=== PATIENT | male | born 1970 | race Caucasian/White ===

== ENCOUNTER → 2016-10-25 | Outpatient (CLI) | payer BC ==
[~2016-10-25] MED LIST: FINA1TAB62 PO; ZOLP10TA6
[2016-10-25 11:56] LABS: BLOOD UREA NITROGEN 12 mg/dl (7-18); GLUCOSE 105 mg/dl (70-99)
[2016-10-25 11:57] LABS: ALT/SGPT 99 U/L (12-78); AST/SGOT 28 U/L (15-37); BUN/CREATININE RATIO 11.3 (10-20); CALCIUM 9.3 mg/dl (8.5-10.1); CARBON DIOXIDE 29 mmol/L (21-32); CHLORIDE 108 mmol/L (98-107); SODIUM 144 mmol/L (136-145)
[2016-10-25 11:59] LABS: ALB/GLOB RATIO 1.4 (0.9-2); ALKALINE PHOSPHATASE 88 U/L (45-117); CHOLESTEROL 217 mg/dl (0-200); HDL CHOLESTEROL 54 mg/dl; LDL CHOLESTEROL CALCULATED 135 mg/dl; TRIGLYCERIDES 138 mg/dl (0-150); VERY LOW DENSITY LIPOPROT CALC 28 mg/dl
[2016-10-25 12:17] LABS: ESTIMATED AVERAGE GLUCOSE 97 mg/dl; HA1C FLAG Normal (Normal)
== END | disposition home or self-care (01) ==
LOC: C.LAB1850 10:07
PROVIDERS: ATTEND Nurse Practitioner Family
DX: E78.00 Pure hypercholesterolemia, unspecified (principal); R73.9 Hyperglycemia, unspecified

== ENCOUNTER 2019-05-02 14:46 | Inpatient (IN) ==
[2019-05-02] MEDS ORDERED: SODIUM CHLORIDE 0.9% 1000ML 1,000 ML IV ONE (15:14)
--- NOTE | 2019-05-02 15:17 | Emergency Department Note ---
Entered by Sherice Glez acting as a scribe for Waldo Aviles MD History of Present Illness General Chief complaint: Syncope (Near Syncope) Stated complaint: NEAR SYNCOPE Time Seen by Provider: 05/02/19 14:55 Source: patient History of Present Illness Onset (ago): hour(s) (just prior to arrival ) Location: head (general) Pain Consistency: + other (episode ) Quality: + other (near syncope ) Associated symptoms: + denies other symptoms (negative urinary symptoms) and + other (positive breathing heavily; positive difficulty speaking; positive unable to focus; positive difficulty focusing; positive losing weight; positive difficulty sleeping; negative thoughts of hurting self or others; negative seeing or hearing things; positive numb all over; negative neck pain); no headaches Treatments prior to arrival: other (Lamictal) The patient is a 48 year old male who presents to the Emergency Room with complaints of an episode of near syncope that occurred just prior to arrival. The patient's states that the patient was breathing heavily at this time. The patient's states that the patient has had difficulty speaking today. The patient states that he has been unable to focus over the past week, and states that after seeing his PCP yesterday he was given and took one dose of Lamictal. The patient's states that several months ago the patient had an "anxiety attack" after their kids were fighting and he was put on mirtazapine but was taken off of this at the end of January, about 3 months ago. The patient's states that the patient has had a difficult time focusing since this time and had a hypomanic episode after this. The patient states that he has had problems eating, losing weight, and sleeping. The patient denies any thoughts of hurting himself or others. He denies seeing or hearing things that are not there. The patient denies pain, but states that he feels numb all over. The patient denies vision changes, headache, neck carrion, and urinary symptoms. The patient's states that the patient's mother has a history of anxiety, depression, and bipolar disorder. The patient denies drug or alcohol use. Home Medications Home Medications Medication Instructions Recorded Confirmed Type atorvastatin 10 mg PO DAILY 10/27/18 05/02/19 History zolpidem 10 mg PO DAILY 10/27/18 05/02/19 History omeprazole 40 mg capsule,delayed 40 mg PO DAILY #90 cap 03/07/19 05/02/19 Rx release finasteride 1 mg PO DAILY 05/02/19 05/02/19 History lamotrigine 25 mg PO HS 05/02/19 05/02/19 History Allergies Allergy/AdvReac Type Severity Reaction Status Date / Time No Known Allergies Allergy Unknown Verified 05/01/19 09:29 Past Med/Surg History Medical History Bipolar disorder (manic depression) (Chronic) Anxiety Insomnia Hyperglycemia Hypercholesterolemia GERD without esophagitis Adopted Anxiety History of wisdom tooth extraction Insomnia Surgical History History of tonsillectomy Family History Mother Colorectal cancer Diabetes Depression Other Family history non-contributory Social History Preferred Language: Turkish Communication Ability: Effective [employer] Required: No Beliefs That Will Affect Care: None marital status: Current Living Situation: Spouse current occupational status: employed Feels Safe at Home: Yes Smoking Status: Light tobacco smoker Tobacco Type: cigars ; Hx Alcohol Use: Yes Alcohol type: beer and wine Alcohol Intake Frequency: Ra rely Hx Substance Use: No Dental Care, Regularly: Yes Physical Activity Frequency: 3-4 Times per Week Review of Systems See HPI for pertinent positives & negatives. and A total of 10 systems reviewed and were otherwise negative Physical Exam Vital Signs Vital Signs - 24 hr 05/02/19 14:48 05/02/19 15:57 05/02/19 15:58 Temperature 36.4 C L Temperature Source Oral Sepsis Recent Fever Within 48 Hours No Sepsis New/Unexplained Change in Mental Status No Sepsis Action Taken by Nursing No Action Required Pulse Rate 97 H 75 70 Pulse Rate [Apical] Pulse Rate from SpO2 Sensor 76 72 Pulse Rhythm [Apical] Pulse Strength [Apical] Respiratory Rate 20 16 24 Respiratory Effort / Characteristics Respiratory Depth Blood Pressure 116/84 117/75 Blood Pressure [Right Arm] Blood Pressure Mean 94 89 Blood Pressure Mean [Right Arm] Blood Pressure Position [Right Arm] Pulse Oximetry 100 97 98 Oxygen Delivery Method Room Air 05/02/19 16:00 05/02/19 16:01 05/02/19 16:53 Temperature Temperature Source Sepsis Recent Fever Within 48 Hours Sepsis New/Unexplained Change in Mental Status Sepsis Action Taken by Nursing Pulse Rate 73 72 106 H Pulse Rate [Apical] Pulse Rate from SpO2 Sensor 75 73 Pulse Rhythm [Apical] Pulse Strength [Apical] Respiratory Rate 8 L 14 19 Respiratory Effort / Characteristics Respiratory Depth Blood Pressure 117/82 122/95 Blood Pressure [Right Arm] Blood Pressure Mean 93 104 Blood Pressure Mean [Right Arm] Blood Pressure Position [Right Arm] Pulse Oximetry 97 96 Oxygen Delivery Method 05/02/19 17:00 05/02/19 17:30 05/02/19 18:00 Temperature Temperature Source Sepsis Recent Fever Within 48 Hours Sepsis New/Unexplained Change in Mental Status Sepsis Action Taken by Nursing Pulse Rate 75 82 76 Pulse Rate [Apical] Pulse Rate from SpO2 Sensor Pulse Rhythm [Apical] Pulse Strength [Apical] Respiratory Rate 21 20 12 Respiratory Effort / Characteristics Respiratory Depth Blood Pressure 142/98 H 136/90 135/92 Blood Pressure [Right Arm] Blood Pressure Mean 112 105 106 Blood Pressure Mean [Right Arm] Blood Pressure Position [Right Arm] Pulse Oximetry Oxygen Delivery Method 05/02/19 20:00 05/02/19 21:39 Temperature Temperature Source Sepsis Recent Fever Within 48 Hours Sepsis New/Unexplained Change in Mental Status Sepsis Action Taken by Nursing Pulse Rate Pulse Rate [Apical] 72 67 Pulse Rate from SpO2 Sensor Pulse Rhythm [Apical] Regular Pulse Strength [Apical] Normal Respiratory Rate 20 20 Respiratory Effort / Characteristics Non-Labored Spontaneous Respiratory Depth Normal Blood Pressure Blood Pressure [Right Arm] 130/74 134/89 Blood Pressure Mean Blood Pressure Mean [Right Arm] 92 104 Blood Pressure Position [Right Arm] Sitting Sitting Pulse Oximetry 98 98 Oxygen Delivery Method Room Air General: Anxious non-ill appearing middle aged in no acute distress. HEENT: Normal cephalic atraumatic. Pupils are equal round and reactive to light. Extraocular movements are intact. Oropharynx is pink with moist mucous membranes. No swelling of the mouth lips or tongue. Neck: Supple with a midline trachea. No meningeal signs or stiffness, no JVD or bruits. No Stridor. Chest: Clear to auscultation bilaterally. No wheezes or rhonchi. No increased work of breathing. Heart: regular rate and rhythm. Abdomen: Soft nontender, nondistended without rebound guarding or rigidity. Extremities: No cyanosis clubbing or edema. No calf tenderness or asymmetry Spine/Back. Non tender to palpation. No CVA tenderness Skin: Good turgor without rashes. Neurologic exam: Cranial nerves two through 12 are intact. Motor and sensation are intact and symmetrical throughout. No tremor. Finger to nose intact. Course 1457: Past medical records reviewed. The patient was evaluated in room B4B. A complete history and physical exam was performed. 1648: Upon reevaluation, the patient is resting comfortably and seems more communicative. The patient is medically cleared and will be seen by the psychiatric disability case manager. 1822: After a long discussion the patient is willing to be further evaluated. 2051: I discussed the case with Dr. Weston who accepts the patient for further evaluation at [address] [place] [address]. 2206: I had a long discussion with the patient who has decided to sign himself in voluntarily to [address] [place] [address]. Consultations Consultation #1: I discussed the case with Dr. Weston who accepts the patient for further evaluation at [address] [place] [address]. Time: 20:52 Administered Medications Atorvastatin Calcium (Lipitor) 10 mg PO DAILY [facility] Stop: 06/02/19 08:59 Last Admin: 05/03/19 08:59 Dose: 10 mg Documented by: [id number] Lorazepam (Ativan) 1 mg PO TID PRN PRN Reason: Anxiety/Agitation Stop: 06/01/19 21:23 Last Admin: 05/03/19 11:31 Dose: 1 mg Documented by: [id number] Finasteride~Non- Formulary Patient's Own Med 1 ea PO DAILY [facility] Stop: 06/02/19 08:59 Last Admin: 05/03/19 08:59 Dose: 1 ea Documented by: [id number] Pantoprazole Sodium (Protonix) 40 mg PO DAILY [facility] Stop: 06/02/19 08:59 Last Admin: 05/03/19 08:59 Dose: 40 mg Documented by: [id number] Discontinued Medications Sodium Chloride (Nss 1000ml) 1,000 mls @ 999 mls/hr IV .Q1H1M ONE Stop: 05/02/19 16:14 Last Infusion: 05/02/19 16:03 Dose: 0 mls/hr Documented by: [id number] Admin: 05/02/19 15:51 Dose: 999 mls/hr Documented by: [id number] Miscellaneous (Order Awaiting Action) 1 ea N/A QS [facility]UY[facility] Stop: 06/02/19 00:00 Last Admin: 05/03/19 04:44 Dose: Not Given Documented by: [id number] Zolpidem Tartrate (Ambien) 10 mg PO HS [facility] Stop: 06/01/19 21:59 Last Admin: 05/03/19 00:09 Dose: 10 mg Documented by: [id number] Medical Decision Making Differential Diagnosis Differential diagnoses include anxiety, bipolar disorder, cardiac disease, arrhythmia, thyroid disease, electrolyte or metabolic abnormality, central neuro logic process, and others were considered. Medical Records Attestation: I reviewed the patient's medical records. Home Medications Current Medication List: was personally reviewed by me Laboratory Data Attestation: I reviewed the patient's lab results. Result diagrams: 05/02/19 15:39 05/02/19 15:39 Lab Results 05/02/19 05/02/19 05/02/19 Range/Units 15:39 15:39 15:39 WBC 8.96 (4.8-10.8) K/uL RBC 4.95 (4.7-6.1) M/uL Hgb 15.1 (14.0-18.0) g/dL Hct 41.9 L (42-52) % MCV 84.6 (80-100) fL MCH 30.5 (25-34) pg MCHC 36.0 (32-36) g/dL RDW Std Deviation 40.7 (36.4-46.3) fL RDW Coeff of Clark 13.3 (11.5-14.5) % Plt Count 218 (130-400) K/uL MPV 10.7 H (7.4-10.4) fL Immature Gran % (Auto) 0.1 % Neut % (Auto) 74.4 % Lymph % (Auto) 19.2 % Grand % (Auto) 5.9 % Eos % (Auto) 0.1 % Baso % (Auto) 0.3 % Immature Gran # (Auto) 0.01 (0.00-0.02) K/uL Neut # (Auto) 6.66 H (1.4-6.5) K/uL Lymph # (Auto) 1.72 (1.2-3.4) K/uL Grand # (Auto) 0.53 (0.11-0.59) K/uL Eos # (Auto) 0.01 (0-0.5) K/uL Baso # (Auto) 0.03 (0-0.2) K/uL Sodium 142 (136-145) mmol/L Potassium 3.8 (3.5-5.1) mmol/L Chloride 112 H (98-107) mmol/L Carbon Dioxide 23 (21-32) mmol/L Anion Gap 7.0 (3-11) BUN 13 (7-18) mg/dl Creatinine 1.20 (0.6-1.4) mg/dl Est Cr Clr Drug Dosing 76.0 ml/min Est GFR ( Amer) 81.2 Est GFR (Non-Af Amer) 70.1 BUN/Creatinine Ratio 10.5 (10-20) Glucose 106 H (70-99) mg/dl Calcium 8.9 (8.5-10.1) mg/dl Total Bilirubin 0.7 (0.2-1) mg/dl AST 11 L (15-37) U/L ALT 33 (12-78) U/L Alkaline Phosphatase 90 (45-117) U/L Total Protein 6.9 (6.4-8.2) gm/dl Albumin 3.9 (3.4-5.0) gm/dl Globulin 3.0 (2.5-4.0) gm/dl Albumin/Globulin Ratio 1.3 (0.9-2) TSH 1.340 (0.300-4.500) uIu/ml Urine Color Urine Appearance (Clear) Urine pH (4.5-7.5) Ur Specific [place] (1.000-1.030) Urine Protein (Negative) Urine Glucose (UA) (Negative) Urine Ketones (Negative) Urine Blood (Negative) Urine Nitrite (Negative) Urine Bilirubin (Negative) Urine Urobilinogen (Negative) Ur Leukocyte Esterase (Negative) Urine WBC (Auto) (0-5) /hpf Urine RBC (Auto) (0-4) /hpf U Hyaline Cast (Auto) (0-5) /lpf U Epithel Cells (Auto) (0-5) /lpf Urine Bacteria (Auto) (Negative) Salicylates < 1.7 L (2.8-20) mg/dl Urine Opiates Screen (Neg) Ur Methadone, Qual (Neg) Acetaminophen < 2 L (10-30) ug/ml Urine Barbiturates (Neg) Ur Phencyclidine (PCP) (Neg) U Amphetamin/Meth Scrn (Neg) MDMA (Ecstasy) Screen (Neg) U Benzodiazepines Scrn (Neg) Ur Cocaine Metabolite (Neg) U Marijuana (THC) Screen (Neg) Ethyl Alcohol mg/dL (0-3) mg/dl 05/02/19 05/02/19 05/02/19 Range/Units 15:39 18:50 18:50 WBC (4.8-10.8) K/uL RBC (4.7-6.1) M/uL Hgb (14.0-18.0) g/dL Hct (42-52) % MCV (80-100) fL MCH (25-34) pg MCHC (32-36) g/dL RDW Std Deviation (36.4-46.3) fL RDW Coeff of Clark (11.5-14.5) % Plt Count (130-400) K/uL MPV (7.4-10.4) fL Immature Gran % (Auto) % Neut % (Auto) % Lymph % (Auto) % Grand % (Auto) % Eos % (Auto) % Baso % (Auto) % Immature Gran # (Auto) (0.00-0.02) K/uL Neut # (Auto) (1.4-6.5) K/uL Lymph # (Auto) (1.2-3.4) K/uL Grand # (Auto) (0.11-0.59) K/uL Eos # (Auto) (0-0.5) K/uL Baso # (Auto) (0-0.2) K/uL Sodium (136-145) mmol/L Potassium (3.5-5.1) mmol/L Chloride (98-107) mmol/L Carbon Dioxide (21-32) mmol/L Anion Gap (3-11) BUN (7-18) mg/dl Creatinine (0.6-1.4) mg/dl Est Cr Clr Drug Dosing ml/min Est GFR ( Amer) Est GFR (Non-Af Amer) BUN/Creatinine Ratio (10-20) Glucose (70-99) mg/dl Calcium (8.5-10.1) mg/dl Total Bilirubin (0.2-1) mg/dl AST (15-37) U/L ALT (12-78) U/L Alkaline Phosphatase (45-117) U/L Total Protein (6.4-8.2) gm/dl Albumin (3.4-5.0) gm/dl Globulin (2.5-4.0) gm/dl Albumin/Globulin Ratio (0.9-2) TSH (0.300-4.500) uIu/ml Urine Color Yellow Urine Appearance Turbid A (Clear) Urine pH 7.5 (4.5-7.5) Ur Specific [place] 1.021 (1.000-1.030) Urine Protein Negative (Negative) Urine Glucose (UA) Negative (Negative) Urine Ketones Negative (Negative) Urine Blood Negative (Negative) Urine Nitrite Negative (Negative) Urine Bilirubin Negative (Negative) Urine Urobilinogen Negative (Negative) Ur Leukocyte Esterase Negative (Negative) Urine WBC (Auto) 1-5 (0-5) /hpf Urine RBC (Auto) 0-4 (0-4) /hpf U Hyaline Cast (Auto) 1-5 (0-5) /lpf U Epithel Cells (Auto) 10-20 H (0-5) /lpf Urine Bacteria (Auto) Negative (Negative) Salicylates (2.8-20) mg/dl Urine Opiates Screen Neg (Neg) Ur Methadone, Qual Neg (Neg) Acetaminophen (10-30) ug/ml Urine Barbiturates Neg (Neg) Ur Phencyclidine (PCP) Neg (Neg) U Amphetamin/Meth Scrn Neg (Neg) MDMA (Ecstasy) Screen Neg (Neg) U Benzodiazepines Scrn Neg (Neg) Ur Cocaine Metabolite Neg (Neg) U Marijuana (THC) Screen Neg (Neg) Ethyl Alcohol mg/dL < 3.0 (0-3) mg/dl Imaging Data Radiologist's Impression: Radiology results as stated below per my review and the radiologist's interpretation: XR chest 1V portable CLINICAL HISTORY: near syncope COMPARISON STUDY: No previous studies for comparison. FINDINGS: The heart is at the upper limits of normal in size. There is no failure. There is no focal pulmonary consolidation. There are no pleural effusions.[ IMPRESSION: No active disease in the chest. Electronically signed by: Cesar Sutton M.D. 05/02/2019 3:[address] head/brain wo con CT DOSE: 729.78 mGycm HISTORY: Mental status change difficulty concentrating, syncope TECHNIQUE: Multiaxial CT images of the head were performed without the use of intravenous contrast. A dose lowering technique was utilized adhering to the principles of ALARA. Comparison: None. Findings: The paranasal sinuses and mastoid air cells are clear. The calvarium and skull base are intact. The ventricles and sulci are within normal limits. There is no mass, hematoma, midline shift, or acute infarct. Impression: No acute intracranial abnormality. The above report was generated using voice recognition software. It may contain grammatical, syntax or spelling errors. Electronically signed by: Tahir Simpson M.D. 05/02/2019 4:21 PM ECG Data Attestation: I personally reviewed and interpreted this ECG as follows: Indication: weakness Rate (beats per minute): 71 Rhythm: normal sinus Findings: no PAC, no PVC, no acute ischemic change and no ectopy Comparison ECG Date: no prior available Blood Pressure Blood Pressure Findings: Normal blood pressure MDM Narrative This patient comes in as described above he was placed in room before. He felt dizzy and had a near syncopal episode today. He is have been having trouble lately over the last week or so where he had trouble focusing. There has been a lot of stress at home. He says some manic type symptoms and his doctor started him on gabapentin yesterday. He feels his symptoms are psychological. He has no neurologic deficits. Stable vital signs. IV access was established he did extensive medical work-up to evaluate for possible medical reason for his symptoms which included EKG, cardiac blood testing chest x-ray head CT urinalysis and culture and toxicologic studies. He was reassessed frequently. EKG does not suggest acute coronary syndrome or arrhythmia. Troponin is negative. CAT scan of his head is unremarkable and he has a normal neurologic exam. He has no significant electrolyte or metabolic abnormalities. He has nothing to suggest acute toxicologic process. At this point, he is medically cleared. He was evaluated by psychiatric disability case manager and we discussed inpatient versus outpatient treatment. The patient is willing to get inpatient treatment as having a hard time functioning at work due to his anxiety and menta l health issues. He voluntarily signed in 2-3 S. for further inpatient treatment and evaluation. Impression & Plan Insomnia, Disorganized thought process, Manic behavior, Anxiety Discharge Plan Visit Data *Final* Discharge Date/Time: 05/02/19 22:33 Chief Complaint: Syncope (Near Syncope) Stated Complaint: NEAR SYNCOPE ED Provider: Waldo Aviles Discharge Problem: Insomnia, Disorganized thought process, Manic behavior, Anxiety Patient Disposition: Admitted As Inpatient Discharge Instructions Interventions: ED Discharge Assessment Last Done: 05/02/19 22:33 The scribe's documentation has been prepared under my direction and personally reviewed by me in its entirety. I confirm that the note above accurately reflects all work, treatment, procedures, and medical decision making performed by me.
--- NOTE | 2019-05-02 15:49 | XRay Report ---
XR chest 1V portable CLINICAL HISTORY: near syncope COMPARISON STUDY: No previous studies for comparison. FINDINGS: The heart is at the upper limits of normal in size. There is no failure. There is no focal pulmonary consolidation. There are no pleural effusions.[ IMPRESSION: No active disease in the chest. Electronically signed by: Cesar Sutton M.D. 05/02/2019 3:48 PM
[2019-05-02 15:52] LABS: Basophils # (auto) 0.03 K/uL (0-0.2); Basophils % (auto) 0.3 %; Eosinophils # (auto) 0.01 K/uL (0-0.5); Eosinophils % (auto) 0.1 %; Hematocrit (blood only) 41.9 % (42-52); Hemoglobin 15.1 g/dL (14.0-18.0); Immature Granulocytes # (auto) 0.01 K/uL (0.00-0.02); Immature Granulocytes % (auto) 0.1 %; Lymphocytes # (auto) 1.72 K/uL (1.2-3.4); Lymphocytes % (auto) 19.2 %; Mean Corpuscular Hemoglobin 30.5 pg (25-34); Mean Corpuscular Volume 84.6 fL (80-100); Mean Platelet Volume 10.7 fL (7.4-10.4); Monocytes # (auto) 0.53 K/uL (0.11-0.59); Monocytes % (auto) 5.9 %; Neutrophils # (auto) 6.66 K/uL (1.4-6.5); Neutrophils % (auto) 74.4 %; Platelet Count 218 K/uL (130-400); RDW Coefficient of Variation 13.3 % (11.5-14.5); RDW Standard Deviation 40.7 fL (36.4-46.3); Red Blood Count 4.95 M/uL (4.7-6.1); White Blood Count 8.96 K/uL (4.8-10.8)
[2019-05-02 16:11] LABS: Albumin Level 3.9 gm/dl (3.4-5.0); BUN Creatinine Ratio 10.5 (10-20); Calcium 8.9 mg/dl (8.5-10.1); Est GFR (African American) 81.2; Est GFR (Non-African American) 70.1; Potassium 3.8 mmol/L (3.5-5.1)
[2019-05-02 16:22] LABS: Albumin Globulin Ratio 1.3 (0.9-2); Bilirubin,Total 0.7 mg/dl (0.2-1); Thyroid Stimulating Hormone 1.34 uIu/ml (0.300-4.500); Total Protein 6.9 gm/dl (6.4-8.2)
--- NOTE | 2019-05-02 16:22 | CT Scan Report ---
CT head/brain wo con CT DOSE: 729.78 mGycm HISTORY: Mental status change difficulty concentrating, syncope TECHNIQUE: Multiaxial CT images of the head were performed without the use of intravenous contrast. A dose lowering technique was utilized adhering to the principles of ALARA. Comparison: None. Findings: The paranasal sinuses and mastoid air cells are clear. The calvarium and skull base are int act. The ventricles and sulci are within normal limits. There is no mass, hematoma, midline shift, or acute infarct. Impression: No acute intracranial abnormality. The above report was generated using voice recognition software. It may contain grammatical, syntax or spelling errors. Electronically signed by: Tahir Simpson M.D. 05/02/2019 4:21 PM
[2019-05-02 16:30] LABS: Acetaminophen < 2 ug/ml (10-30)
[2019-05-02 16:31] LABS: Salicylate < 1.7 mg/dl (2.8-20)
[2019-05-02 19:23] LABS: Appearance Urine Turbid (Clear); Bacteria Urine Automated Negative (Negative); Bilirubin Urine Negative (Negative); Blood Urine Negative (Negative); Color Urine Yellow; Glucose Urine UA Negative (Negative); Ketones Urine Negative (Negative); Leukocyte Esterase Urine Negative (Negative); Nitrite Urine Negative (Negative); Protein Urine Negative (Negative); RBC Urine Automated 0-4 /hpf (0-4); Specific Gravity Urine 1.021 (1.000-1.030); Urobilinogen Urine Negative (Negative); pH Urine 7.5 (4.5-7.5)
[2019-05-02 19:38] LABS: Amphetamines+Metham, Urine Neg (Neg); Barbiturates, Urine Neg (Neg); Benzodiazepine, Urine Neg (Neg); Cocaine, Urine Neg (Neg); MDMA (Ecstacy), Urine Neg (Neg); Methadone, Urine Neg (Neg); Opiate, Urine Neg (Neg); Phencyclidine, Urine Neg (Neg)
[2019-05-02] MEDS ORDERED: ACETAMINOPHEN 325 MG TAB PO PRN (21:20)
[2019-05-02] MEDS ORDERED: BISMUTH SUBSALICYLATE PER ML OMNICELL CHARGE PO PRN (21:20)
[2019-05-02] MEDS ORDERED: MAGNESIUM HYDROXIDE SUSP 30 ML UDC PO PRN (21:20)
[2019-05-02] MEDS ORDERED: SODIUM CHLORIDE 0.65% NA SOLN 45 ML (OCEAN) PRN (21:20)
[2019-05-02] MEDS ORDERED: ALUMINUM/MAGNESIUM SUSP 30 ML UDC PO PRN (21:20)
[2019-05-02] MEDS ORDERED: LORazepam 1 MG TAB PO PRN (21:24)
[2019-05-02] MEDS ORDERED: LORazepam 2 MG/ML VIAL (IM USE) IM PRN (21:25)
[2019-05-02] MEDS ORDERED: ZOLPIDEM TARTRATE 10 MG TAB PO SCH (22:00)
[2019-05-03] MEDS: FINASTERIDE PO SCH (08:59)
[2019-05-03] MEDS: ATORVASTATIN 10 MG TAB PO SCH (08:59)
[2019-05-03] MEDS: PANTOprazole 40 MG TAB PO SCH (08:59)
[2019-05-03] MEDS ORDERED: ZOLPIDEM TARTRATE 10 MG TAB PO SCH (09:00)
[2019-05-03] MEDS ORDERED: FINASTERIDE PO SCH (09:00)
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
[2019-05-03] MEDS ORDERED: ESZOPICLONE 1 MG TAB PO PRN (10:26)
[2019-05-03] MEDS: lamoTRIgine 25 MG TAB PO SCH (21:55)
[2019-05-03] MEDS ORDERED: MIRTAZAPINE TAB 15 MG TAB PO SCH (22:00)
[2019-05-04] MEDS: PANTOprazole 40 MG TAB PO SCH (08:53)
[2019-05-04] MEDS: ATORVASTATIN 10 MG TAB PO SCH (08:53)
[2019-05-04] MEDS: FINASTERIDE PO SCH (08:53)
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
[2019-05-04] MEDS ORDERED: ZOLPIDEM TARTRATE 10 MG TAB PO PRN (16:26)
[2019-05-04] MEDS: MIRTAZAPINE TAB 15 MG TAB PO SCH (21:51)
[2019-05-04] MEDS: lamoTRIgine 25 MG TAB PO SCH (21:51)
--- NOTE | 2019-05-05 08:08 | Psychiatric Progress Note ---
Date of Service May 05, 2019 Impression / Recommendations Impression 48-year-old male with a history of generalized anxiety disorder, insomnia, and newly diagnosed bipolar disorder after what was described as a manic episode last month in the context of significant family stress at home who presents with inability to function due to severe anxiety. He notes that he did have a period of several weeks during which he felt happier and had more energy than usual, but indicates that this was within the context of making medication adjustments that included tapering and discontinuing mirtazapine and Ambien. After discontinuing sedating medications he did experience some improvement in his energy and felt more optimistic for a time, but does not describe elated, expansive, or highly irritable mood. Patient was placed back on mirtazapine at 15 mg a day (without further titration) and will trial Lunesta for sleep, as he reports Ambien is no longer effective. Continue to closely observe the patient for signs of felix or hypomania. Until stability of mood and thought content is observed, patient continues to be at high risk of harm to self. Ongoing inpatient psychiatric treatment is medically necessary. (1) Anxiety: 05/03 -Patient meets criteria for generalized anxiety disorder, with a recent panic attack which led to hospitalization. -Reviewed the diagnosis and treatment recommendations, including options to resu me mirtazapine or a trial of an SSRI antidepressant. He agreed to resume mirtazapine as he feels it was beneficial and well-tolerated, so will start 7.5 mg at bedtime. -Lorazepam 1 mg 3 times daily as needed for acute anxiety in the hospital. Due to history of alcohol misuse and chronic sedative hypnotic sleep medication, would discontinue this prior to discharge. -Attend to participate in groups and therapy, work on healthy coping skills and discharge safety plan. -Has outpatient therapy at [facility]. Refer for outpatient psychiatric care. Encourage marital therapy. 05/04 -I believe that in addition to a panic disorder and generalized anxiety, the patient is having ongoing difficulty adjusting to his home situation, which includes marital difficulties and what he describes as a "confidence killing" set of behavioral problems that involve all 3 of his children. He adds, "1 kid with behavioral problems would be something that I could explain without blaming my parenting skills. To have all 3 having problems has made me question abilities." He says he also feels diminished by the fact that he is having difficulty managing the stress of his circumstances. -The patient was told that he can use lorazepam for excessive anxiety or for the panic episodes. -He represents that mirtazapine at doses higher than 7.5 mg have, in the past, assisted not only with sleep but with anxiety. He notes that a side effect of mirtazapine, at doses above 15 mg has been excess daytime sedation. The plan is to increase his dose of mirtazapine from 7.5 mg to a dose of 15 mg starting this evening. 05/05 - Continue 15mg of mirtazapine qHS - Encourage ongoing participation in group and recreational therapies, encouraging development of healthy and effective coping strategies (2) Bipolar disorder: 05/03 -diagnostically challenging as not a typical bipolar presentation, with severe anxiety and insomnia triggering his recent manic episode. Will get collateral information from his , as he indicates that they have different opinions about how severe his behavior was. -Continue lamotrigine as this is a reasonable intervention to stabilize mood. He just started it yesterday, so will be on 25 mg until 05/16/2019, and can then increase to 50 mg daily. 05/03 -I agree that this is not a typical bipolar presentation, but I also agree that we cannot rule out bipolar type II at this point. As above, the patient does not endorse increased energy, there is no evidence of grandiosity, present or past, the patient does not describe pressured speech, and although he does note that his energy got "pretty good" during the period of time that was considered to have been a manic episode in the recent past, the context, per the patient, is that he had been tapering and then discontinued sedative medications, including mirtazapine and Ambien. -We will gradually titrate lamotrigine as a mood stabilizer. The patient was again reminded of the material risks and anticipated benefits associated with his medications. 05/05 - As above, continue current medication regimen with titration of lamotrigine as scheduled (3) Insomnia: 05/03 -discontinue zolpidem as patient states it is no longer effective. He is requesting medication for sleep, stating he has been on zolpidem nightly for 10 years and feels unable to sleep without medication. Reviewed options, including hydroxyzine (which he has tried and says was ineffective), trazodone, and Lunesta. He agreed to a trial of Lunesta after review of the risks, benefits, and side effects. Start 1 mg at bedtime, may repeat x1 if needed. 05/04 -The patient notes that his report that Ambien was no longer effective was may be within the context of his also having stopped mirtazapine. He indicates that he feels that these 2 medications, in combination, addressed his primary insomnia. He stopped both medications because he hope to find that he no longer needed them, and, also, because he was experiencing some "hangover" excess sedation in the mornings. -The patient agreed to a plan to resume zolpidem (Ambien) 10 mg in combination with mirtazapine 15 mg at bedtime. We will monitor for signs of hypomania or felix. 05/05 - Pt reports poor sleep last evening after requesting to switch back to Ambien - Extended trial of Lunesta was encourage, as patient now states it was effective two nights ago for sleep (4) Hypercholesterolemia: Continue home dose of atorvastatin. (5) GERD without esophagitis: Continue pantoprazole. 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 Chief Complaint "I do not know, I am just not sure how all this is come together." Review of Systems Notes Constitutional: reports significant difficulty sleeping last evening Cardiovascular: denied Respiratory: denied Gastrointestinal: denied Neurological: denied Psychiatric: denies symptoms other than stated above Total of at least 10 systems reviewed, pertinent positives as above and in HPI. Sleep Information Total Hours of Sleep: 6.5 Sleep Comments: pt on q-15 minute checks Meal Information Percent Meal Consumed - Breakfast: 100 Percent Meal Consumed - Lunch: 90 Percent Meal Consumed - Dinner: 100 Nutrition Comment: pt. asleep Subjective Subjective Patient was seen & assessed and interval progress reviewed with nursing and social work. Staff reports the patient had a family meeting with his yesterday. Patient was rather focused yesterday on communication between his and colleagues at work, concerned about their knowledge of his present situation. It is reported the patient worked with counselors to develop statements he continues to address his absence without providing any detail he felt uncomfortable with. Patient was seen today to assess progress since admission. Patient begins conversation by informing this provider that he was unable to sleep last evening. He reports desire to discontinue Ambien, as he is now convinced it was not effective. Patient states the reason he requested the medication was because "it was comfortable, it's what worked with Remeron before." Patient was agreeable to retrial of Lunesta as he states, "I slept well that night." Despite reported conversations last evening, patient continues to be rather focused on returning to work and how he shares information about his absence with his colleagues. This provider discussed that his colleagues are not entitled to information regarding his hospitalization, and that he may share information as he feels comfortable. When this provider mentioned development of vague statements to address his absence without giving too much detail, the patient appears confused almost as if this had not previously been discussed. This provider needed to repeat points multiple times, as patient had difficulty understanding rather simple things such as the use of a return to work letter or FMLA. Patient gives conflicting reports regarding going back to work. He makes several comments regarding his concern for missing the beginning of the semester and feeling that additional pressure. He then contradicts the statements by voicing his concern about returning to work before he has his mental health and sleep under control. This provider encouraged the patient to focus on goals for today and getting a good night sleep, and that we would discuss again tomorrow what his thoughts were moving forward. It remains unclear if he feels he will be ready for discharge soon. Patient does deny suicidality, does not verbalize other needs or concerns at this time. Physical Exam Psychiatric Orientation: alert, oriented x 3 and cooperative (Superficially) Apperance: appropriately dressed, appropriately groomed and appeared stated age Eye Contact: good eye contact Motor Behavior: steady gait and station and no abnormal motor movements (Sits with arms folded for the duration of the visit) Speech: normal rate/rhythm/volume of speech Affect: + anxious affect and + constricted affect Mood: + anxious mood Thought Process: + circumstantial thought process and + looseness of associations (Mild, feels as though we are having slightly different conversations); + thought process not linear or logical Thought Content: + preoccupation (With sleep, and possibility of missing work), + cognitive distortions and reality based without delusions (But does seem confused, even with simple explanations) Suicidal Thoughts: denies suicidal thoughts and denies suicidal intent Homicidal Thoughts: denies homicidal thoughts Hallucinations: no auditory hallucinations and no visual hallucinations Cognition: remote memory grossly intact, attention grossly intact and language grossly intact Estimated Intelligence: consistent with education level Insight: + impaired insight Judgement: + fair judgement Vital Signs (Past 24 Hours) Last Vital Signs Temp 36.7 C 05/05/19 07:02 Pulse 72 05/05/19 07:03 Resp 16 05/05/19 07:02 BP 131/91 05/05/19 07:03 Pulse Ox 98 05/02/19 21:39 Results & Data Current Inpatient Medications Current Inpatient Medications: Current Inpatient Medications Acetaminophen (Tylenol) 650 mg PO Q4H PRN PRN Reason: Headache or Minor Fever Stop: 06/01/19 21:19 Al Hydrox/Mg Hydrox/Simethicone (Maalox) 30 ml PO Q4H PRN PRN Reason: GI Upset Stop: 06/01/19 21:19 Atorvastatin Calcium (Lipitor) 10 mg PO DAILY CHUYITA Stop: 06/02/19 08:59 Last Admin: 05/04/19 08:53 Dose: 10 mg Documented by: Bismuth Subsalicylate (Kaopectate) 15 ml PO PRN PRN PRN Reason: Loose Stool Stop: 06/01/19 21:19 Hydroxyzine HCl (Vistaril) 25 mg PO Q4H PRN PRN Reason: Anxiety Stop: 06/01/19 21:19 Hydroxyzine HCl (Vistaril) 50 mg PO HSZ PRN PRN Reason: Insomnia Stop: 06/01/19 21:19 Lamotrigine (Lamictal) 25 mg PO HS CHUYITA Stop: 06/02/19 20:59 Last Admin: 05/04/19 21:51 Dose: 25 mg Documented by: Lorazepam (Ativan) 1 mg PO TID PRN PRN Reason: Anxiety/Agitation Stop: 06/01/19 21:23 Last Admin: 05/03/19 11:31 Dose: 1 mg Documented by: Lorazepam (Ativan) 2 mg IM Q4H PRN PRN Reason: Agitation Stop: 06/01/19 21:24 Magnesium Hydroxide (Milk Of Magnesia) 30 ml PO DAILY PRN PRN Reason: Heartburn Stop: 06/01/19 21:19 Mirtazapine (Remeron) 15 mg PO HS CHUYITA Stop: 06/03/19 21:59 Last Admin: 05/04/19 21:51 Dose: 15 mg Documented by: Finasteride~Non- Formulary Patient's Own Med 1 ea PO DAILY CHUYITA Stop: 06/02/19 08:59 Last Admin: 05/04/19 08:53 Dose: 1 ea Documented by: Pantoprazole Sodium (Protonix) 40 mg PO DAILY CHUYITA Stop: 06/02/19 08:59 Last Admin: 05/04/19 08:53 Dose: 40 mg Documented by: Sodium Chloride ([place] Nasal) 1 - 2 sprays NA PRN PRN PRN Reason: Nasal Dryness/Congestion Stop: 06/01/19 21:19 Zolpidem Tartrate (Ambien) 10 mg PO HS PRN PRN Reason: Sleep Stop: 06/03/19 16:25 Last Admin: 05/04/19 21:53 Dose: 10 mg Documented by: Mental Health & Subst Abuse Tx Psychiatrist Name of Psychiatrist: Dr Lucía Dunn, Psychiatrist's Date of Appointment with Psychiatrist: 05/29/19 Time of Appointment with Psychiatrist: 9am Therapist Name of Therapist: Shanta Carlin [facility] Therapist's Date of Therapist Appointment: 05/15/19 Time of Therapist Appointment: 9am Post Discharge Appointments Primary Care Physician Name Of Family Doctor: Armaan LEROY MNP [facility] Date of Appointment with PCP: 05/17/19 Time of Appointment with PCP: 9:20am Provider Appointment Comment: Maria Luisa [address] Dr, (You can cancel appt if psychiatry scheduled) Contact Information Discharge Discharge Address: [facility] [address], [place] [address] CPT Code CPT Code 05224 (1) Insomnia Insomnia type: unspecified Qualified Code(s): G47.00 - Insomnia, unspecified (2) Bipolar disorder Active/Remission status: remission status unspecified Qualified Code(s): F31.9 - Bipolar disorder, unspecified
[2019-05-05] MEDS: FINASTERIDE PO SCH (08:52)
[2019-05-05] MEDS: ATORVASTATIN 10 MG TAB PO SCH (08:52)
[2019-05-05] MEDS: PANTOprazole 40 MG TAB PO SCH (08:52)
[2019-05-05] MEDS: lamoTRIgine 25 MG TAB PO SCH (21:19)
[2019-05-05] MEDS: ESZOPICLONE 1 MG TAB PO PRN ×2 (21:19→22:33)
[2019-05-05] MEDS: MIRTAZAPINE TAB 15 MG TAB PO SCH (21:19)
[2019-05-06] MEDS: FINASTERIDE PO SCH (08:17)
[2019-05-06] MEDS: PANTOprazole 40 MG TAB PO SCH (08:17)
[2019-05-06] MEDS: ATORVASTATIN 10 MG TAB PO SCH (08:17)
--- NOTE | 2019-05-06 08:28 | Psychiatric Progress Note ---
Date of Service May 06, 2019 Impression / Recommendations Impression 48-year-old male with a history of generalized anxiety disorder, insomnia, and newly diagnosed bipolar disorder after what was described as a manic episode last month in the context of significant family stress at home who presents with inability to function due to severe anxiety. He notes that he did have a period of several weeks during which he felt happier and had more energy than usual, but indicates that this was within the context of making medication adjustments that included tapering and discontinuing mirtazapine and Ambien. After discontinuing sedating medications he did experience some improvement in his energy and felt more optimistic for a time, but does not describe elated, expansive, or highly irritable mood. Patient was placed back on mirtazapine at 15 mg a day (without further titration) and will trial Lunesta for sleep, as he reports Ambien is no longer effective. Continue to closely observe the patient for signs of felix or hypomania. Until stability of mood and thought content is observed, patient continues to be at high risk of harm to self. Ongoing inpatient psychiatric treatment is medically necessary. (1) Anxiety: 05/03 -Patient meets criteria for generalized anxiety disorder, with a recent panic attack which led to hospitalization. -Reviewed the diagnosis and treatment recommendations, including options to resu me mirtazapine or a trial of an SSRI antidepressant. He agreed to resume mirtazapine as he feels it was beneficial and well-tolerated, so will start 7.5 mg at bedtime. -Lorazepam 1 mg 3 times daily as needed for acute anxiety in the hospital. Due to history of alcohol misuse and chronic sedative hypnotic sleep medication, would discontinue this prior to discharge. -Attend to participate in groups and therapy, work on healthy coping skills and discharge safety plan. -Has outpatient therapy at [facility]. Refer for outpatient psychiatric care. Encourage marital therapy. 05/04 -I believe that in addition to a panic disorder and generalized anxiety, the patient is having ongoing difficulty adjusting to his home situation, which includes marital difficulties and what he describes as a "confidence killing" set of behavioral problems that involve all 3 of his children. He adds, "1 kid with behavioral problems would be something that I could explain without blaming my parenting skills. To have all 3 having problems has made me question abilities." He says he also feels diminished by the fact that he is having difficulty managing the stress of his circumstances. -The patient was told that he can use lorazepam for excessive anxiety or for the panic episodes. -He represents that mirtazapine at doses higher than 7.5 mg have, in the past, assisted not only with sleep but with anxiety. He notes that a side effect of mirtazapine, at doses above 15 mg has been excess daytime sedation. The plan is to increase his dose of mirtazapine from 7.5 mg to a dose of 15 mg starting this evening. 05/05 - Continue 15mg of mirtazapine qHS - Encourage ongoing participation in group and recreational therapies, encouraging development of healthy and effective coping strategies (2) Bipolar disorder: 05/03 -diagnostically challenging as not a typical bipolar presentation, with severe anxiety and insomnia triggering his recent manic episode. Will get collateral information from his , as he indicates that they have different opinions about how severe his behavior was. -Continue lamotrigine as this is a reasonable intervention to stabilize mood. He just started it yesterday, so will be on 25 mg until 05/16/2019, and can then increase to 50 mg daily. 05/03 -I agree that this is not a typical bipolar presentation, but I also agree that we cannot rule out bipolar type II at this point. As above, the patient does not endorse increased energy, there is no evidence of grandiosity, present or past, the patient does not describe pressured speech, and although he does note that his energy got "pretty good" during the period of time that was considered to have been a manic episode in the recent past, the context, per the patient, is that he had been tapering and then discontinued sedative medications, including mirtazapine and Ambien. -We will gradually titrate lamotrigine as a mood stabilizer. The patient was again reminded of the material risks and anticipated benefits associated with his medications. 05/05 - As above, continue current medication regimen with titration of lamotrigine as scheduled (3) Insomnia: 05/03 -discontinue zolpidem as patient states it is no longer effective. He is requesting medication for sleep, stating he has been on zolpidem nightly for 10 years and feels unable to sleep without medication. Reviewed options, including hydroxyzine (which he has tried and says was ineffective), trazodone, and Lunesta. He agreed to a trial of Lunesta after review of the risks, benefits, and side effects. Start 1 mg at bedtime, may repeat x1 if needed. 05/04 -The patient notes that his report that Ambien was no longer effective was may be within the context of his also having stopped mirtazapine. He indicates that he feels that these 2 medications, in combination, addressed his primary insomnia. He stopped both medications because he hope to find that he no longer needed them, and, also, because he was experiencing some "hangover" excess sedation in the mornings. -The patient agreed to a plan to resume zolpidem (Ambien) 10 mg in combination with mirtazapine 15 mg at bedtime. We will monitor for signs of hypomania or felix. 05/05 - Pt reports poor sleep last evening after requesting to switch back to Ambien - Extended trial of Lunesta was encourage, as patient now states it was effective two nights ago for sleep (4) Hypercholesterolemia: Continue home dose of atorvastatin. (5) GERD without esophagitis: Continue pantoprazole. 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 Chief Complaint "[]". Review of Systems Sleep Information Total Hours of Sleep: 7.25 Sleep Comments: slept in 328 Meal Information Percent Meal Consumed - Breakfast: 100 Percent Meal Consumed - Lunch: 100 Percent Meal Consumed - Dinner: 100 Nutrition Comment: pt. asleep Subjective Subjective Patient was seen & assessed and interval progress reviewed with [treatment team] [nursing and social work] Physical Exam Vital Signs (Past 24 Hours) Last Vital Signs Temp 36.7 C 05/06/19 06:00 Pulse 74 05/06/19 06:57 Resp 18 05/06/19 06:00 BP 122/79 05/06/19 06:57 Pulse Ox 98 05/02/19 21:39 Results & Data Current Inpatient Medications Current Inpatient Medications: Current Inpatient Medications Acetaminophen (Tylenol) 650 mg PO Q4H PRN PRN Reason: Headache or Minor Fever Stop: 06/01/19 21:19 Al Hydrox/Mg Hydrox/Simethicone (Maalox) 30 ml PO Q4H PRN PRN Reason: GI Upset Stop: 06/01/19 21:19 Atorvastatin Calcium (Lipitor) 10 mg PO DAILY CHUYITA Stop: 06/02/19 08:59 Last Admin: 05/06/19 08:17 Dose: 10 mg Documented by: Bismuth Subsalicylate (Kaopectate) 15 ml PO PRN PRN PRN Reason: Loose Stool Stop: 06/01/19 21:19 Eszopiclone (Lunesta) 1 mg PO HSZ PRN PRN Reason: Insomnia Stop: 06/04/19 13:24 Last Admin: 05/05/19 22:33 Dose: 1 mg Documented by: Hydroxyzine HCl (Vistaril) 25 mg PO Q4H PRN PRN Reason: Anxiety Stop: 06/01/19 21:19 Hydroxyzine HCl (Vistaril) 50 mg PO HSZ PRN PRN Reason: Insomnia Stop: 06/01/19 21:19 Lamotrigine (Lamictal) 25 mg PO HS CHUYITA Stop: 06/02/19 20:59 Last Admin: 05/05/19 21:19 Dose: 25 mg Documented by: Lorazepam (Ativan) 1 mg PO TID PRN PRN Reason: Anxiety/Agitation Stop: 06/01/19 21:23 Last Admin: 05/03/19 11:31 Dose: 1 mg Documented by: Lorazepam (Ativan) 2 mg IM Q4H PRN PRN Reason: Agitation Stop: 06/01/19 21:24 Magnesium Hydroxide (Milk Of Magnesia) 30 ml PO DAILY PRN PRN Reason: Heartburn Stop: 06/01/19 21:19 Mirtazapine (Remeron) 15 mg PO HS CHUYITA Stop: 06/03/19 21:59 Last Admin: 05/05/19 21:19 Dose: 15 mg Documented by: Finasteride~Non- Formulary Patient's Own Med 1 ea PO DAILY CHUYITA Stop: 06/02/19 08:59 Last Admin: 05/06/19 08:17 Dose: 1 ea Documented by: Pantoprazole Sodium (Protonix) 40 mg PO DAILY CHUYITA Stop: 06/02/19 08:59 Last Admin: 05/06/19 08:17 Dose: 40 mg Documented by: Sodium Chloride ([place] Nasal) 1 - 2 sprays NA PRN PRN PRN Reason: Nasal Dryness/Congestion Stop: 06/01/19 21:19 Mental Health & Subst Abuse Tx Psychiatrist Name of Psychiatrist: Dr Mohr? Mona, Psychiatrist's Date of Appointment with Psychiatrist: 05/29/19 Time of Appointment with Psychiatrist: 9am Therapist Name of Therapist: Shanta [facility] Therapist's Date of Therapist Appointment: 05/15/19 Time of Therapist Appointment: 9am Post Discharge Appointments Primary Care Physician Name Of Family Doctor: Armaan [facility] Primary Care Date of Appointment with PCP: 05/17/19 Time of Appointment with PCP: 9:20am Provider Appointment Comment: [address], (You can cancel appt if psychiatry scheduled) Contact Information Discharge Discharge [address]: [address] [place] [address], [place] [address] CPT Code CPT Code 83284 [id number] (1) Bipolar disorder Active/Remission status: remission status unspecified Qualified Code(s): F31.9 - Bipolar disorder, unspecified (2) Insomnia Insomnia type: unspecified Qualified Code(s): G47.00 - Insomnia, unspecified
--- NOTE | 2019-05-06 11:25 | Discharge Summary ---
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 [phone]. A rumper is on-call 04/04 for the Behavioral Health Unit for emergencies At any time you feel your situation is an emergency, you may also call 911 immediately. Your Doctors Instructions noted above were prepared by provider Nubia Razo PA-C. Prescriptions: New mirtazapine 15 mg Tablet 15 mg PO HS 30 Days Qty: 30 RF: 0 eszopiclone 1 mg tablet 1 mg PO HS PRN (Reason: insomnia) 30 Days Qty: 60 RF: 0 Continued omeprazole 40 mg capsule,delayed release(DR/EC) 40 mg PO DAILY Qty: 90 RF: 1 finasteride 1 mg tablet 1 mg PO DAILY RF: 0 lamotrigine 25 mg tablet 25 mg PO HS RF: 0 atorvastatin 10 mg tablet 10 mg PO DAILY RF: 0 Discontinued zolpidem 10 mg tablet 10 mg PO DAILY RF: 0 Stand-Alone Forms: [facility] Discharge Orders: Discharge Order (Routine); Ordered 05/06/19 Ordered By: Nubia Razo Admission Data Admit Date/Time: 05/02/19 21:50 Attending Provider: Raine Cota Admit Provider: Keron Johnson I Primary Care Provider: Eliana Davis Service: Psychiatry Other Interventions: Discharge Summary Assessment (RN) Last Done: 05/06/19 13:15 PSY Interdisciplinary Discharge Planning Last Done: 05/06/19 13:15 Pending Studies at Discharge: No DC Date/Time DO NOT enter until pt leaves facility: 05/06/19 14:08
--- NOTE | 2019-05-06 12:41 | Communication Note ---
Date of Service: May 06, 2019 Met with patient and reviewed progress with MAYO Jarquin. Patient is tolerating resumption of mirtazapine, sleep has improved with addition of Lois esta, and family meeting was held with his . He is reporting improvement, his anxiety has lessened and thinking is clear. He is eating and performing ADLs independently here, and outpatient therapy and psychiatric care have been arranged. He is requesting discharge, which his is in support of. He is completed his discharge safety plan which he is able to review. He denies any acute safety concerns, including thoughts of harming himself or others. As he is no longer at acute risk of harm and is requesting discharge, he can be discharged and managed as an outpatient at this time.
[2019-05-06] MEDS ORDERED: DESTROY THIS MEDICATION ONE (13:53)
== END 2019-05-06 14:08 | disposition home or self-care (01) | DRG 880 ==
LOC: ED 14:46 → 3S 21:50

== ENCOUNTER 2025-07-23 18:29 | Observation (INO) ==
--- NOTE | 2025-07-23 18:54 | Emergency Department Note ---
Impression & Plan Cerebrovascular accident, Dizziness ED Provider Note NAME: ILAN BELCHER AGE: 54 SEX: M ARRIVES VIA: Walk-In INFORMANT: [Patient][, ] ED PROVIDER(S): Gabe Lyle MD CHIEF COMPLAINT: Vertigo, dizziness PLAN: Disposition: Hospitalization MEDICAL DECISION MAKING: Patient arrived with some vomiting, but also having the symptoms, last known well at 4 PM, stroke alert called after assessment and neurology made aware. Low likelihood for requiring TNK given likely peripheral nature of symptoms but will defer to neurology further recommendations. Patient with no known history of vertigo and sudden onset symptoms. Patient evaluated by stroke neurology, his imaging workup is fairly reassuring, he is well-appearing and his symptoms could be peripheral in nature but given the vague speech symptoms, he would likely benefit from hospitalization and MRI and stroke workup. Patient comfortable with that plan. His vital signs have improved, his blood pressure is no longer elevated Triage Nursing notes reviewed and agree them. [Additional history obtained from] [] [Prior medical records reviewed] [] Vital Signs: reviewed and remarkable for Minimal initial hypertension Differential diagnosis: Central versus peripheral vertigo, stroke, cerebellar mass, bleeding, acute coronary syndrome, labyrinthitis, BPPV. ER treatment provided: Giving peripheral vertigo treatment, IV fluids, nausea medication Diagnostics interpreted by me: ECG:Sinus bradycardia, no acute ischemic changes Cardiac Monitoring: [none] Consultation(s): Consult with [facility], for stroke evaluation, stroke alert, awaiting recommendations. HPI: 54/M arrives for evaluation of Sudden onset dizziness, vertigo. This started around 4 PM, patient started feeling dizzy and feeling like he was having trouble walking. He also got very nauseous and was vomiting. He called his and told him he was having the symptoms and she came to get him and he has continued to worsen. He has trouble walking and anytime he moves his dizziness gets significantly worse. Has never had anything like this before, takes no medications. Denies any focal weakness or numbness, denies any speech difficulty, no headache or any pain. ROS: See above HPI for pertinent positives & negatives. A total of [10] systems reviewed and were otherwise negative. PAST MEDICAL HISTORY:[See Below] PAST SURGICAL HISTORY:[See Below] FAMILY HISTORY:[See Below] SOCIAL HISTORY:[See Below] HOME MEDICATIONS:[See Below] ALLERGIES:[See Below] VITALS:[See Below] PHYSICAL EXAMINATION: Gen: Patient with moderate distress, pale, nauseous, difficulty moving without getting significant dizziness. Eyes: Nystagmus, particularly with looking to the left, horizontal Neck: Supple, normal ROM CV: S1, S2, No murmurs, no lower extremity edema Pulm: CTA bilaterally, no increased work of breathing, no wheezing GI: Abd soft, nontender, normal bowel sounds, no distension : No CVA tenderness, no suprapubic abdominal tenderness or distension Neuro: No acute focal neuro deficits, normal strength and sensation Skin: No rashes, wounds, or erythema. + pale, mild diaphoresis ED COURSE: Times/Reassessments: Patient initially triaged as vomiting, upon seeing the patient it was more of a vertigo and dizziness with difficulty walking. After evaluation, stroke alert called, [facility] paged. Still suspect a peripheral type vertigo. He has no ataxia on exam and normal finger-nose and definitely worsened with position. We will give some Zofran, meclizine and evaluate from a stroke alert standpoint. Patient agreeable with plan of care. 6:58 PM: Discussed the case with [facility], they are aware the patient and they will evaluate and give recommendations. 7:18 PM: Patient seen by [facility], they are recommending against TNK given symptoms are fairly mild. We are awaiting CT, CTA but likely plan for Plavix load, baby aspirin and hospitalization for stroke rule out. Patient did describe some difficulty speaking, could be an element of anxiety and stress but will likely need stroke rule out. 9:03 PM: Patient reassessed, he is feeling improved, he does not feel quite back to 100%. He still feels like his speech is slightly off but he is speaking clearly on my exam. I did set him up and he did not get significantly dizzy but he does feel markedly improved from when he arrived. After discussion with [facility], they are recommending aspirin, Plavix and hospitalization for stroke workup. Patient agreeable and comfortable with that plan of care. Gabe Lyle MD Past Med/Surg History Problem List (Updated 07/23/25 @ 22:33 by Delisa Thomas PA-C) Vertigo Dizziness (Acute) Cerebrovascular accident (Acute) Obesity (BMI 30-39.9) GERD without esophagitis (Chronic) Hypercholesterolemia (Chronic) Insomnia (Chronic) Anxiety (Chronic) Wright's palsy Medical History Bipolar disorder (manic depression) Gynecomastia History of broken finger History of colon polyps History of COVID-19 diagnosed 10/13/20 @ [facility] in [place]--sinus symptoms for 2 wks, headache for a few weeks COVID-19 Anxiety Hyperglycemia Surgical History H/O tooth extraction History of colonoscopy with polypectomy History of tonsillectomy History of wisdom tooth extraction Family History Mother Pancreatic cancer Diabetes Anxiety Depression Colorectal cancer Hemochromatosis Father , age 53 Alcohol abuse Brother No problems noted. Brother No problems noted. Sister No problems noted. Brother No problems noted. Sister No problems noted. Daughter No problems noted. Daughter No problems noted. Daughter No problems noted. Other Family history non-contributory No family history of adverse response to anesthesia Denies family history of Ovarian cancer Prostate cancer Myocardial infarction Breast cancer Social History Smoking Status: Former smoker Tobacco Type: Cigars Second Hand Exposure: No; Do You Dip or Chew Tobacco: No; Hx Alcohol Use: No Hx Substance Use: No Preferred Language: Slovak Communication Ability: Effective Visual Impairment: Limited Hearing Ability: Normal Physiotherapy Assistant Required: No Beliefs That Will Affect Care: None marital status: Current Living Situation: Spouse Current Living Situation Comment: Lives with and kid current occupational status: employed 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 How many Children do You have: 3 Feels Safe at Home: Yes Childhood Exposure to Second-Hand Smoke: No Diet: regular caffeine: Yes during the past year weight has: remained stable Dental Care, Regularly: Yes Physical Activity Frequency: 3-4 Times per Week Seatbelt Use: always Sunscreen Use: Yes Assistive Devices: Contacts and Glasses Allergies Allergies Allergy/AdvReac Type Severity Reaction Status Date / Time No Known Allergies Allergy Unknown Verified 07/23/25 19:55 Home Meds Home Medications Medication Instructions Recorded Confirmed zolpidem 10 mg tablet 10 mg PO HS PRN Sleep 05/07/19 07/23/25 fexofenadine 60 mg tablet (Ghazal 60 mg PO QAM PRN Congestion 11/10/19 07/23/25 Allergy) lithium carbonate 300 mg tablet 600 mg PO HS 11/10/19 07/23/25 clonazepam 1 mg tablet 1 mg PO BID 11/28/20 07/23/25 lithium carbonate 150 mg capsule 150 mg PO HS 06/28/21 07/23/25 atorvastatin 10 mg tablet 10 mg PO HS 07/23/25 07/23/25 finasteride 1 mg tablet 1 mg PO HS 07/23/25 07/23/25 omeprazole 40 mg capsule,delayed 40 mg PO HS 07/23/25 07/23/25 release Results & Data (ED) Vital Signs Vital Signs - 24 hr 07/23/25 18:32 07/23/25 18:50 07/23/25 18:52 Temperature 36.3 C L Temperature Source Oral Pulse Rate 63 63 Pulse Rate [Apical] Pulse Rhythm [Apical] Pulse Strength [Apical] Respiratory Rate 18 20 Respiratory Effort / Characteristics Non-Labored Spontaneous Respiratory Depth Normal Respiratory Pattern Regular Blood Pressure 145/85 H Blood Pressure [Left Arm] 135/89 Blood Pressure Mean 105 Blood Pressure Mean [Left Arm] 104 Blood Pressure Position [Left Arm] Pulse Oximetry 97 Oxygen Delivery Method Room Air Oxygen Flow Rate Sepsis Recent Fever Within 48 Hours No Sepsis New/Unexplained Change in Mental Status No Sepsis Action Taken by Nursing No Action Required Oxygen Flow Rate - Titration Pulse Oximetry Post Tiitration 07/23/25 19:20 07/23/25 19:27 07/23/25 19:35 Temperature Temperature Source Pulse Rate Pulse Rate [Apical] 60 56 L Pulse Rhythm [Apical] Regular Regular Pulse Strength [Apical] Normal Normal Respiratory Rate 18 19 Respiratory Effort / Characteristics Non-Labored Spontaneous Non-Labored Spontaneous Respiratory Depth Normal Normal Respiratory Pattern Regular Regular Blood Pressure Blood Pressure [Left Arm] 128/77 118/66 Blood Pressure Mean Blood Pressure Mean [Left Arm] 94 83 Blood Pressure Position [Left Arm] Lying Lying Pulse Oximetry 92 87 L 98 Oxygen Delivery Method Nasal Cannula Room Air Nasal Cannula Nasal Cannula Oxygen Flow Rate 2 0 2 Sepsis Recent Fever Within 48 Hours Sepsis New/Unexplained Change in Mental Status Sepsis Action Taken by Nursing Oxygen Flow Rate - Titration 2 Pulse Oximetry Post Tiitration 94 07/23/25 19:50 11/11/25 20:05 07/23/25 21:00 Temperature Temperature Source Pulse Rate Pulse Rate [Apical] 59 L 58 L 60 Pulse Rhythm [Apical] Regular Regular Regular Pulse Strength [Apical] Normal Normal Normal Respiratory Rate 19 17 18 Respiratory Effort / Characteristics Non-Labored Spontaneous Non-Labored Spontaneous Non-Labored Spontaneous Respiratory Depth Normal Normal Normal Respiratory Pattern Regular Regular Regular Blood Pressure Blood Pressure [Left Arm] 113/69 118/70 145/92 H Blood Pressure Mean Blood Pressure Mean [Left Arm] 83 86 109 Blood Pressure Position [Left Arm] Lying Lying Lying Pulse Oximetry 98 98 100 Oxygen Delivery Method Nasal Cannula Nasal Cannula Nasal Cannula Oxygen Flow Rate 2 2 2 Sepsis Recent Fever Within 48 Hours Sepsis New/Unexplained Change in Mental Status Sepsis Action Taken by Nursing Oxygen Flow Rate - Titration Pulse Oximetry Post Tiitration Home Medications Current Medication List: was personally reviewed by me Laboratory Data Attestation: I reviewed the patient's lab results. Reassuring laboratory workup 07/23/25 18:47 07/23/25 18:47 Lab Results 07/23/25 07/23/25 07/23/25 Range/Units 18:47 18:55 18:57 WBC 9.24 (4.8-10.8) K/ul RBC 4.99 (4.70-6.10) M/uL Hgb 14.7 (14.0-18.0) g/dL POC Hgb 14.3 (14.0-18.0) g/dl Hct 43.0 (42.0-52.0) % POC Hct 42 (42-52) % MCV 86.2 (80.0-100.0) fL MCH 29.5 (25.0-34.0) pg MCHC 34.2 (32.0-36.0) g/dL RDW Std Deviation 43.3 (36.4-46.3) fL RDW Coeff of Clark 13.9 (11.5-14.5) % Plt Count 245 (130-400) K/uL MPV 11.2 (9.4-12.4) fL Immature Gran % (Auto) 0.3 % Neut % (Auto) 58.1 % Lymph % (Auto) 32.4 % [place] % (Auto) 7.6 % Eos % (Auto) 1.2 % Baso % (Auto) 0.4 % Neut # (Auto) 5.37 (1.40-6.50) K/uL Lymph # (Auto) 2.99 (1.20-3.40) K/uL [place] # (Auto) 0.70 H (0.11-0.59) K/uL Eos # (Auto) 0.11 (0.00-0.50) K/uL Baso # (Auto) 0.04 (0.00-0.20) K/uL Immature Gran # (Auto) 0.03 (0.01-0.20) K/uL PT 10.9 (9.0-12.0) Seconds INR 1.0 (0.9-1.1) APTT 21 (21-31) Seconds PTT Ratio 0.8 POC Sodium 139 (135-144) mmol/L Sodium 138 (136-145) mmol/L POC Potassium 3.7 (3.3-5.0) mmol/L Potassium 3.5 (3.5-5.1) mmol/L POC Chloride 107 (101-112) mmol/L Chloride 109 H (98-107) mmol/L Carbon Dioxide 22 (21-32) mmol/L POC Total CO2 21 L (24-31) mmol/L Anion Gap 7 (3-11) POC Anion Gap 16.0 (16-25) mmol/L POC BUN 16 (7-18) mg/dl BUN 14 (6-23) mg/dl Creatinine 1.03 (0.6-1.4) mg/dl POC Creatinine 1.1 (0.6-1.3) mg/dl Est Cr Clr Drug Dosing Not Reportable eGFR 85.25 BUN/Creatinine Ratio 13.6 (10-20) Glucose 129 H (70-99(Fasting)) mg/dl POC Glucose 121 H (70-99) mg/dl POC Glucose (other) 126 H (70-99) mg/dl Calcium 9.2 (8.6-10.3) mg/dl POC Ioniz Calcium Effie 1.14 (1.12-1.32) mmol/l Magnesium 2.2 (1.7-2.4) mg/dl Total Bilirubin 0.6 (0.2-1.0) mg/dl AST 21 (13-39) U/L ALT 33 (7-52) U/L Alkaline Phosphatase 74 (34-104) U/L Troponin I High Sens 3.9 (0-20) pg/ml Total Protein 7.1 (6.0-8.3) gm/dl Albumin 4.3 (3.4-5.0) gm/dl Globulin 2.8 (2.5-4.0) gm/dl Albumin/Globulin Ratio 1.5 (0.9-2) Blood Type Antibody Screen 07/23/25 Range/Units 19:01 WBC (4.8-10.8) K/ul RBC (4.70-6.10) M/uL Hgb (14.0-18.0) g/dL POC Hgb (14.0-18.0) g/dl Hct (42.0-52.0) % POC Hct (42-52) % MCV (80.0-100.0) fL MCH (25.0-34.0) pg MCHC (32.0-36.0) g/dL RDW Std Deviation (36.4-46.3) fL RDW Coeff of Clark (11.5-14.5) % Plt Count (130-400) K/uL MPV (9.4-12.4) fL Immature Gran % (Auto) % Neut % (Auto) % Lymph % (Auto) % [place] % (Auto) % Eos % (Auto) % Baso % (Auto) % Neut # (Auto) (1.40-6.50) K/uL Lymph # (Auto) (1.20-3.40) K/uL [place] # (Auto) (0.11-0.59) K/uL Eos # (Auto) (0.00-0.50) K/uL Baso # (Auto) (0.00-0.20) K/uL Immature Gran # (Auto) (0.01-0.20) K/uL PT (9.0-12.0) Seconds INR (0.9-1.1) APTT (21-31) Seconds PTT Ratio POC Sodium (135-144) mmol/L Sodium (136-145) mmol/L POC Potassium (3.3-5.0) mmol/L Potassium (3.5-5.1) mmol/L POC Chloride (101-112) mmol/L Chloride (98-107) mmol/L Carbon Dioxide (21-32) mmol/L POC Total CO2 (24-31) mmol/L Anion Gap (3-11) POC Anion Gap (16-25) mmol/L POC BUN (7-18) mg/dl BUN (6-23) mg/dl Creatinine (0.6-1.4) mg/dl POC Creatinine (0.6-1.3) mg/dl Est Cr Clr Drug Dosing eGFR BUN/Creatinine Ratio (10-20) Glucose (70-99(Fasting)) mg/dl POC Glucose (70-99) mg/dl POC Glucose (other) (70-99) mg/dl Calcium (8.6-10.3) mg/dl POC Ioniz Calcium Effie (1.12-1.32) mmol/l Magnesium (1.7-2.4) mg/dl Total Bilirubin (0.2-1.0) mg/dl AST (13-39) U/L ALT (7-52) U/L Alkaline Phosphatase (34-104) U/L Troponin I High Sens (0-20) pg/ml Total Protein (6.0-8.3) gm/dl Albumin (3.4-5.0) gm/dl Globulin (2.5-4.0) gm/dl Albumin/Globulin Ratio (0.9-2) Blood Type A Negative Antibody Screen NEGATIVE Administered Medications Discontinued Medications Aspirin (Aspirin 81 Mg Chew) 81 mg PO NOW STA Stop: 07/23/25 20:39 Last Admin: 07/23/25 20:45 Dose: 81 mg Documented By: bernabe Clonazepam (Clonazepam 1 Mg Tab) 1 mg PO ONE STA Stop: 07/23/25 22:16 Last Admin: 07/23/25 22:29 Dose: Not Given Documented By: LUCERO Clopidogrel Bisulfate (Clopidogrel Bisulfate 300 Mg Tab) 300 mg PO NOW STA Stop: 07/23/25 20:39 Last Admin: 07/23/25 20:47 Dose: 300 mg Documented By: bernabe Ioversol (Optiray 320 125ml) 115 ml IV ONCE ONE Stop: 07/23/25 19:15 Last Admin: 07/23/25 19:14 Dose: 115 ml Documented By: SRIKANTH Meclizine HCl (Meclizine Hcl 25 Mg Tab) 25 mg PO NOW STA Stop: 07/23/25 18:52 Last Admin: 07/23/25 19:20 Dose: 25 mg Documented By: bernabe Ondansetron HCl (Ondansetron Inj 2 Mg/Ml 2 Ml Vial) 4 mg IV NOW STA Stop: 07/23/25 18:52 Last Admin: 07/23/25 18:58 Dose: 4 mg Documented By: sheryl Ondansetron HCl (Ondansetron Inj 2 Mg/Ml 2 Ml Vial) Confirm Administered Dose 4 mg .ROUTE .STK-MED ONE Stop: 07/23/25 21:41 Last Admin: 07/23/25 21:49 Dose: 4 mg Documented By: bernabe Imaging Data Attestation: I personally reviewed and interpreted this imaging study as follows: My Impression: No intracranial hemorrhage, no large vessel occlusions or anything that would require acute intervention Radiologist's Impression: Head CT 07/23/25 18:50 Technique: Axial computed tomography images were obtained of the brain from the vertex to the skull base without intravenous contrast. Findings: There is no sign of intracranial hemorrhage. There is normal sierra-white matter differentiation with no sign of acute or old infarction. No midline shift or other form of herniation is identified. There is no hydrocephalus. No obvious mass lesion is seen on this noncontrast examination. The visualized portions of the orbits and paranasal sinuses appear unremarkable. The mastoid air cells appear clear Impression: Unremarkable noncontrast CT of the brain Electronically signed by Brett Burnett 07-23-2025 7:27 PM Head CTA 07/23/25 18:50 Technique: Axial computed tomography images were obtained of the brain after the administration of intravenous contrast according to the CT angiogram protocol Findings: No definite stenosis or aneurysm is seen of the anterior, middle, or posterior cerebral artery circulations. The visualized vertebral arteries and the basilar artery appear unremarkable Impression: No definite stenosis or aneurysm of the intracranial arteries Electronically signed by Brett Burnett 07-23-2025 8:04 PM Neck CTA 07/23/25 18:50 Technique: Axial computed tomography images were obtained of the neck after the administration of intravenous contrast according to the CT angiogram protocol Findings: No stenosis is seen of the common carotid arteries bilaterally. The carotid bulbs appear normal. The remainder of the internal carotid arteries appear patent bilaterally. No stenosis of the external carotid arteries is seen The vertebral arteries are patent bilaterally with no significant stenosis seen. The visualized thoracic aorta appears unremarkable Impression: No definite stenosis of the neck arteries Electronically signed by Brett Burnett 07-23-2025 8:06 PM Discharge Plan Visit Data Chief Complaint: Stroke Alert Stated Complaint: VOMIT, WEAKNESS, VERTIGO ED Provider: Gabe Lyle Discharge Problem: Cerebrovascular accident, Dizziness Patient Disposition: Being Evaluated by Hospitalist Condition: Fair Forms Stand Alone Forms: [facility] Prescriptions Prescriptions: No Action fexofenadine [Ghazal Allergy] 60 mg tablet 60 mg PO QAM PRN (Reason: Congestion) lithium carbonate 300 mg tablet 600 mg PO HS Rx Instructions: TOTAL DOSE 750 MG--TAKES WITH 150 MG CAP. zolpidem 10 mg tablet 10 mg PO HS PRN (Reason: Sleep) clonazepam 1 mg Tablet 1 mg PO BID lithium carbonate 150 mg capsule 150 mg PO HS Rx Instructions: TOTAL DOSE 750 MG--TAKES WITH 2-300 MG TABS. atorvastatin 10 mg tablet 10 mg PO HS omeprazole 40 mg capsule,delayed release(DR/EC) 40 mg PO HS finasteride 1 mg tablet 1 mg PO HS Referrals Referrals: Armaan Hill III, CRNP [Primary Care Provider] -
[2025-07-23] MEDS: ONDANSETRON INJ 2 MG/ML 2 ML VIAL IV STA (18:58)
[2025-07-23 19:01] LABS: Hematocrit (blood only) 43.0 % (42.0-52.0); Hemoglobin 14.7 g/dL (14.0-18.0); Immature Granulocytes # (auto) 0.03 K/uL (0.01-0.20); Immature Granulocytes % (auto) 0.3 %; Mean Corpuscular Hemoglobin 29.5 pg (25.0-34.0); Mean Corpuscular Volume 86.2 fL (80.0-100.0); Platelet Count 245 K/uL (130-400); RDW Standard Deviation 43.3 fL (36.4-46.3); Red Blood Count 4.99 M/uL (4.70-6.10); White Blood Count 9.24 K/ul (4.8-10.8)
[2025-07-23] MEDS: OPTIRAY 320 125ml IV ONE (19:14)
[2025-07-23 19:19] LABS: Alanine Aminotransferase 33 U/L (7-52); Albumin Globulin Ratio 1.5 (0.9-2); Albumin Level 4.3 gm/dl (3.4-5.0); Alkaline Phosphatase 74 U/L (34-104); Anion Gap 7 (3-11); Bilirubin,Total 0.6 mg/dl (0.2-1.0); Blood Urea Nitrogen 14 mg/dl (6-23); Calcium 9.2 mg/dl (8.6-10.3); Carbon Dioxide 22 mmol/L (21-32); Chloride 109 mmol/L (98-107); Globulin 2.8 gm/dl (2.5-4.0); Glucose 129 mg/dl (70-99(Fasting)); Magnesium 2.2 mg/dl (1.7-2.4); Potassium 3.5 mmol/L (3.5-5.1); Sodium 138 mmol/L (136-145); Total Protein 7.1 gm/dl (6.0-8.3)
[2025-07-23] MEDS: MECLIZINE HCL 25 MG TAB PO STA (19:20)
--- NOTE | 2025-07-23 19:28 | CT Scan Report ---
Technique: Axial computed tomography images were obtained of the brain from the vertex to the skull base without intravenous contrast. Findings: There is no sign of intracranial hemorrhage. There is normal sierra-white matter differentiation with no sign of acute or old infarction. No midline shift or other form of herniation is identified. There is no hydrocephalus. No obvious mass lesion is seen on this noncontrast examination. The visualized portions of the orbits and paranasal sinuses appear unremarkable. The mastoid air cells appear clear Impression: Unremarkable noncontrast CT of the brain Electronically signed by Brett Burnett 07-23-2025 7:27 PM
[2025-07-23 19:31] LABS: INR 1.0 (0.9-1.1); Partial Thromboplastin Time 21 Seconds (21-31); Prothrombin Time 10.9 Seconds (9.0-12.0)
--- NOTE | 2025-07-23 20:05 | CT Scan Report ---
Technique: Axial computed tomography images were obtained of the brain after the administration of intravenous contrast according to the CT angiogram protocol Findings: No definite stenosis or aneurysm is seen of the anterior, middle, or posterior cerebral artery circulations. The visualized vertebral arteries and the basilar artery appear unremarkable Impression: No definite stenosis or aneurysm of the intracranial arteries Electronically signed by Brett Burnett 07-23-2025 8:04 PM
--- NOTE | 2025-07-23 20:06 | CT Scan Report ---
Technique: Axial computed tomography images were obtained of the neck after the administration of intravenous contrast according to the CT angiogram protocol Findings: No stenosis is seen of the common carotid arteries bilaterally. The carotid bulbs appear normal. The remainder of the internal carotid arteries appear patent bilaterally. No stenosis of the external carotid arteries is seen The vertebral arteries are patent bilaterally with no significant stenosis seen. The visualized thoracic aorta appears unremarkable Impression: No definite stenosis of the neck arteries Electronically signed by Brett Burnett 07-23-2025 8:06 PM
[2025-07-23] MEDS: ASPIRIN 81 MG CHEW PO STA (20:45)
[2025-07-23] MEDS: CLOPIDOGREL BISULFATE 300 MG TAB PO STA (20:47)
--- NOTE | 2025-07-23 21:32 | History & Physical Report ---
Date of Service July 23, 2025 Assessment & Plan (1) Vertigo: (2) Hypoxia: Plan 57-year-old male PMHx anxiety, Wright's palsy, insomnia, hypercholesterolemia, and GERD presenting for dizziness, blurred vision, and N/V starting at 1600 the day of arrival. Workup is overall grossly WNL with CBC, PT/INR, and troponin WNL. CMP with mild abnormalities of chloride and glucose, not significant enough to warrant symptoms. Imaging without acute findings. Remains with some speech concerns. Neurology was consulted during stroke alert, recommended ASA + Plavix with further workup. Admission for such. #Vertigo/? CVA LKW 1600; No TNK administered at arrival to ED. Received ASA 81mg + Plavix 300mg in ED per neurology recs. Continues to experience vertigo, with N/V. Nystagmus on admitting exam, no additional neurological deficits. Anxiety seems to be a concerning factor for patient, however at this time anxiety does not appear to be the main culprit for symptoms, can certainly be worsening them however. No prior CVA/TIA. H/o Maury palsy ~ 3 years ago. Admission for further workup, r/o CVA. - CBC, PT/INR, troponin WNL; CMP grossly unremarkable - BMP am - Scott level pending - UA, UDS pending - Head CT, head CTA, and neck CTA unremarkable - EKG sinus bradycardia (59 bpm), LVH - Echo pending am - Lipids 03/2025 - on atorvastatin 10mg daily - continue, adjust dose pending complete workup - Gentle IVF LR @ 80 mL/hr x 500 mL since vomiting, will recheck BMP am - Zofran prn N/V - Acetaminophen prn fever/pain - Continue ASA - Orthostatics for AM - MRI IAC pending - Consider neuro consult, pending complete workup #Hypoxia No SOB/CP/palpitations, is having vomiting. No O2 at baseline. O2 sats went down to 87% on RA, now on O2 via NC. - BioFire negative - CXR pending - Continue O2 prn - wean as patient tolerates #Psych/Insomnia- Clonazepam, lithium, zolpidem - continue, pending lithium level #- Finasteride - continue #GERD- Omeprazole - continue Dispo: Obs, PCU VTE Prophylaxis: SCDs This document was dictated utilizing Rule.. Please excuse any grammatical errors that may be secondary to use of this software. Admission and Anticipated Discharge Date Admission Date: 07/23/2025 History of Present Illness Chief Complaint: Stroke alert Primary Care Provider: Armaan Hill III, RAD 57-year-old male PMHx anxiety, Wright's palsy, insomnia, hypercholesterolemia, and GERD presenting for dizziness, blurred vision, and N/V starting at 1600 the day of arrival. Pt reports that he had a sudden onset of vertigo, feeling as though the room was spinning around him. He felt that his vision became blurry at that time as well. The vertigo resolved some, then at 1800 while the patient was at his office, he reports sudden worsening of the vertigo with associated N/V. He continued to have blurred vision bilaterally, feeling that things were not clear and it was similar to his "contacts being dirty and almost foggy." He felt off balance with walking because of the vertiginous symptoms, and was concerned that he was going to "go down". He was able to get himself to his car after calling his , and he had an episode of emesis here. He reports that the vertigo continues to come and go in waves, causing him to vomit with the worse part of it. He describes his current feeling as being almost "hangover-like." He does not have abdominal pain or additional GI symptoms. He does suffer from anxiety, feels that this is worsening it. Admits to some tinnitus but not sure when it started, and not worse on one side compared to the other. Feels that his voice is off, stating that he knows what he wants to say but mechanically he feels that he is struggling to say the words. He denies additional neuro deficits. No facial droop. 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 He denies CP, palpitations, SOB, abdominal pain, D/C, F/C, URI symptoms, LUTS, weakness, numbness/tingling, or falls. Never had this happen before, no prior h/o CVA/TIA. ED evaluation reveals CBC grossly WNL; WNL PT/INR; CMP Cl 109, glucose 129; Ca 9.2; Mg 2.2; Trop 3.9; Head CT without acute findings; head CTA no definite stenosis or aneurysm; neck CTA no definite stenosis; EKG sinus bradycardia @ 59 bpm.; Provided with ASA 81mg po, Plavix 300 mg po, meclizine 25mg po, and ondansetron 4mg IV in ED. Please see Dr. Gutierrez's attestation for adjustments/additions to treatment plan. Allergies Allergy/AdvReac Type Severity Reaction Status Date / Time No Known Allergies Allergy Unknown Verified 07/23/25 19:55 Home Medications Medication Instructions Recorded Confirmed Type zolpidem 10 mg tablet 10 mg PO HS PRN Sleep 05/07/19 07/23/25 History fexofenadine 60 mg tablet (Ghazal 60 mg PO QAM PRN Congestion 11/10/19 07/23/25 History Allergy) lithium carbonate 300 mg tablet 600 mg PO HS 11/10/19 07/23/25 History clonazepam 1 mg tablet 1 mg PO BID 11/28/20 07/23/25 History lithium carbonate 150 mg capsule 150 mg PO HS 06/28/21 07/23/25 History atorvastatin 10 mg tablet 10 mg PO HS 07/23/25 07/23/25 History finasteride 1 mg tablet 1 mg PO HS 07/23/25 07/23/25 History omeprazole 40 mg capsule,delayed 40 mg PO HS 07/23/25 07/23/25 History release Past Med/Surg History Problem List (Updated 07/23/25 @ 23:34 by Delisa Thomas PA-C) Hypoxia Vertigo Dizziness (Acute) Cerebrovascular accident (Acute) Obesity (BMI 30-39.9) GERD without esophagitis (Chronic) Hypercholesterolemia (Chronic) Insomnia (Chronic) Anxiety (Chronic) Wright's palsy Medical History Bipolar disorder (manic depression) Gynecomastia History of broken finger History of colon polyps History of COVID-19 diagnosed 10/13/20 @ [facility] in [place]--sinus symptoms for 2 wks, headache for a few weeks COVID-19 Anxiety Hyperglycemia Surgical History H/O tooth extraction History of colonoscopy with polypectomy History of tonsillectomy History of wisdom tooth extraction Family History Mother Pancreatic cancer Diabetes Anxiety Depression Colorectal cancer Hemochromatosis Father , age 53 Alcohol abuse Brother No problems noted. Brother No problems noted. Sister No problems noted. Brother No problems noted. Sister No problems noted. Daughter No problems noted. Daughter No problems noted. Daughter No problems noted. Other Family history non-contributory No family history of adverse response to anesthesia Denies family history of Ovarian cancer Prostate cancer Myocardial infarction Breast cancer Social History Smoking Status: Former smoker Tobacco Type: Cigars Second Hand Exposure: No; Do You Dip or Chew Tobacco: No; Hx Alcohol Use: No Hx Substance Use: No Preferred Language: Estonian Communication Ability: Effective Visual Impairment: Limited Hearing Ability: Normal Client Analyst Required: No Beliefs That Will Affect Care: None marital status: Current Living Situation: Spouse Current Living Situation Comment: Lives with and kid current occupational status: employed 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 How many Children do You have: 3 Feels Safe at Home: Yes Safety Concerns: Feels Safe At This Time Childhood Exposure to Second-Hand Smoke: No Diet: regular caffeine: Yes during the past year weight has: remained stable Dental Care, Regularly: Yes Physical Activity Frequency: 3-4 Times per Week Seatbelt Use: always Sunscreen Use: Yes Assistive Devices: Contacts and Glasses Review of Systems Review of Systems: All systems reviewed & are unremarkable except as noted in Subjective Physical Exam Physical Exam: General: No acute distress Skin: Warm and dry, diaphoretic (after vomiting) Head: Normocephalic, atraumatic Eyes: PERRL, conjunctivae clear, sclera non-icteric ENT: External ear and ear canal without swelling; nose atraumatic; fair dentition, tongue normal appearance, pharynx normal, appears dry Neck: Supple, no LAD Cardio: RRR, no M/G/R, S1 and S2 normal Resp: No respiratory distress, Lungs CTA in all lobes bilaterally, no wheezes, rales, or rhonchi Abdomen: Vomiting upon entering the room, clear yellow liquid; Abdomen soft, symmetric, nontender; No masses or hepatosplenomegaly; Bowel sounds normoactive MSK: No deformities; pulses palpable and equal; no edema. Neuro: II- PERRL, no VF deficits III, IV, - EOMs intact, no deviation, vertical nystagmus with L gaze V- Normal sensation in all locations VII- No asymmetry, no nasolabial fold flattening VIII- Normal hearing to speech and finger rub bilaterally IX, X- Normal palatal elevation, no ulnar deviation XI- 5/5 head turn + shoulder shrug bilaterally XII- Midline tongue protrusion Motor: 5/5 strength throughout BUE/BLE; no pronator drift Reflexes: WNL throughout, no clonus Sensory: Normal sensation throughout, no hemineglect, Romberg absent Coordination: Normal [id number], no tremor, no dysmetria Gait: Unable to assess; feels unsteady Psych: Appropriate mood and affect; good judgement and insight. did arrive after initial meeting with the patient; I independently spoke with the patient's upon her arrival. Results & Data Results & Data Vital Signs (Past 12 Hours) Vital Signs Temp Pulse Pulse Resp BP BP Pulse Ox 07/23/25 20:05 58 L 17 118/70 98 07/23/25 19:50 59 L 19 113/69 98 07/23/25 19:35 56 L 19 118/66 98 07/23/25 19:27 87 L 07/23/25 19:20 60 18 128/77 92 07/23/25 18:52 63 07/23/25 18:50 20 135/89 07/23/25 18:32 36.3 C L 63 18 145/85 H 97 O2 Del Method O2 Flow Rate 07/23/25 20:05 Nasal Cannula 2 07/23/25 19:50 Nasal Cannula 2 07/23/25 19:35 Nasal Cannula 2 07/23/25 19:27 Room Air, Nasal Cannula 0 07/23/25 19:20 Nasal Cannula 2 07/23/25 18:52 07/23/25 18:50 07/23/25 18:32 Room Air Laboratory Results 07/23/25 07/23/25 07/23/25 19:01 18:57 18:55 WBC RBC Hgb POC Hgb 14.3 Hct POC Hct 42 MCV MCH MCHC RDW Std Deviation RDW Coeff of Clark Plt Count MPV Immature Gran % (Auto) Neut % (Auto) Lymph % (Auto) [place] % (Auto) Eos % (Auto) Baso % (Auto) Neut # (Auto) Lymph # (Auto) [place] # (Auto) Eos # (Auto) Baso # (Auto) Immature Gran # (Auto) PT INR APTT PTT Ratio POC Sodium 139 Sodium POC Potassium 3.7 Potassium POC Chloride 107 Chloride Carbon Dioxide POC Total CO2 21 L Anion Gap POC Anion Gap 16.0 POC BUN 16 BUN Creatinine POC Creatinine 1.1 Est Cr Clr Drug Dosing eGFR BUN/Creatinine Ratio Glucose POC Glucose 121 H POC Glucose (other) 126 H Calcium POC Ioniz Calcium Effie 1.14 Magnesium Total Bilirubin AST ALT Alkaline Phosphatase Troponin I High Sens Total Protein Albumin Globulin Albumin/Globulin Ratio Blood Type A Negative Antibody Screen NEGATIVE 07/23/25 18:47 WBC 9.24 RBC 4.99 Hgb 14.7 POC Hgb Hct 43.0 POC Hct MCV 86.2 MCH 29.5 MCHC 34.2 RDW Std Deviation 43.3 RDW Coeff of Clark 13.9 Plt Count 245 MPV 11.2 Immature Gran % (Auto) 0.3 Neut % (Auto) 58.1 Lymph % (Auto) 32.4 [place] % (Auto) 7.6 Eos % (Auto) 1.2 Baso % (Auto) 0.4 Neut # (Auto) 5.37 Lymph # (Auto) 2.99 [place] # (Auto) 0.70 H Eos # (Auto) 0.11 Baso # (Auto) 0.04 Immature Gran # (Auto) 0.03 PT 10.9 INR 1.0 APTT 21 PTT Ratio 0.8 POC Sodium Sodium 138 POC Potassium Potassium 3.5 POC Chloride Chloride 109 H Carbon Dioxide 22 POC Total CO2 Anion Gap 7 POC Anion Gap POC BUN BUN 14 Creatinine 1.03 POC Creatinine Est Cr Clr Drug Dosing Not Reportable eGFR 85.25 BUN/Creatinine Ratio 13.6 Glucose 129 H POC Glucose POC Glucose (other) Calcium 9.2 POC Ioniz Calcium Effie Magnesium 2.2 Total Bilirubin 0.6 AST 21 ALT 33 Alkaline Phosphatase 74 Troponin I High Sens 3.9 Total Protein 7.1 Albumin 4.3 Globulin 2.8 Albumin/Globulin Ratio 1.5 Blood Type Antibody Screen Diagnostic Findings Head CT 07/23/25 18:50 Technique: Axial computed tomography images were obtained of the brain from the vertex to the skull base without intravenous contrast. Findings: There is no sign of intracranial hemorrhage. There is normal sierra-white matter differentiation with no sign of acute or old infarction. No midline shift or other form of herniation is identified. There is no hydrocephalus. No obvious mass lesion is seen on this noncontrast examination. The visualized portions of the orbits and paranasal sinuses appear unremarkable. The mastoid air cells appear clear Impression: Unremarkable noncontrast CT of the brain Electronically signed by Brett Burnett 07-23-2025 7:27 PM Head CTA 07/23/25 18:50 Technique: Axial computed tomography images were obtained of the brain after the administration of intravenous contrast according to the CT angiogram protocol Findings: No definite stenosis or aneurysm is seen of the anterior, middle, or posterior cerebral artery circulations. The visualized vertebral arteries and the basilar artery appear unremarkable Impression: No definite stenosis or aneurysm of the intracranial arteries Electronically signed by Brett Burnett 07-23-2025 8:04 PM Neck CTA 07/23/25 18:50 Technique: Axial computed tomography images were obtained of the neck after the administration of intravenous contrast according to the CT angiogram protocol Findings: No stenosis is seen of the common carotid arteries bilaterally. The carotid bulbs appear normal. The remainder of the internal carotid arteries appear patent bilaterally. No stenosis of the external carotid arteries is seen The vertebral arteries are patent bilaterally with no significant stenosis seen. The visualized thoracic aorta appears unremarkable Impression: No definite stenosis of the neck arteries Electronically signed by Brett Burnett 07-23-2025 8:06 PM Medications Administered ASA 81mg po Plavix 300mg po Meclizine 25mg po Zofran 4mg IV ECG Additional Comments: Sinus bradycardia with LVH 59 bpm, MS 202, QRS 96, QT/QTc 420/415, PRT 10/-20 Code Status & VTE Plan Code Status Full Patient has advanced directives with more specific wishes, would like to clarify morning of 07/24/2025. Full code at time of admission. PG Care Time/CCT Total # of Minutes Spent Total Time Spent with Patient: Total time spent is greater than 50% in coordination of care (as documented) at patient's floor/unit and/or counseling patient: Coding Level of Care Code 53488 INT INP/OBS CARE 3/75MIN Diagnoses Vertigo R42 Hypoxia R09.02
[2025-07-23] MEDS: ONDANSETRON INJ 2 MG/ML 2 ML VIAL ONE (21:49)
[2025-07-23] MEDS: clonazePAM 1 MG TAB PO STA (22:29)
[2025-07-23] MEDS ORDERED: LORazepam Inj 0.25 MG in SYRINGE 0.125 ML IV STA (22:29)
[2025-07-23] MEDS: LORazepam 1 MG/1 ML SYR ED Inj Use IV STA (22:46)
[2025-07-23 22:58] LABS: Chlamydia pneumoniae PCR Not Detected (NotDetected); Coronavirus 229E PCR Not Detected (NotDetected); Coronavirus CoV-2 (COVID19)PCR Not Detected (NotDetected); Coronavirus HKU1 PCR Not Detected (NotDetected); Coronavirus NL63 PCR Not Detected (NotDetected); Coronavirus OC43PCR Not Detected (NotDetected); Human Metapneumovirus PCR Not Detected (NotDetected); Parainfluenza Virus 1 PCR Not Detected (NotDetected); Parainfluenza Virus 2 PCR Not Detected (NotDetected); Parainfluenza Virus 3 PCR Not Detected (NotDetected); Parainfluenza Virus 4 PCR Not Detected (NotDetected); Respiratory Syncytial VirusPCR Not Detected (NotDetected); Rhinovirus/Enterovirus PCR Not Detected (NotDetected)
[2025-07-23 23:09] LABS: Appearance Urine Clear (Clear); Glucose Urine UA Negative (Negative)
[2025-07-23] MEDS: GADOBUTROL 65ML VIAL IV ONE (23:46)
[2025-07-24 00:09] LABS: Amphetamines+Metham, Urine Neg (Neg); MDMA (Ecstacy), Urine Neg (Neg); Marijuana, Urine Neg (Neg)
--- NOTE | 2025-07-24 00:21 | XRay Report ---
Exam(s): XR CXR 1 VIEW EXAM: XR Chest, 1 View CLINICAL HISTORY: Reason for exam: hypoxia. TECHNIQUE: Frontal view of the chest. COMPARISON: No relevant prior studies available. FINDINGS: Lungs: Unremarkable. No consolidation. Pleural space: Unremarkable. No pneumothorax. Heart: Unremarkable. No cardiomegaly. Mediastinum: Unremarkable. Normal mediastinal contour. Bones/joints: Unremarkable. No acute fracture. IMPRESSION: Normal chest x-ray. Electronically signed by: Lauri Jara MD 07/24/25 00:20 AM
[2025-07-24] MEDS ORDERED: MAGNESIUM HYDROXIDE SUSP 30 ML UDC PO PRN (00:26)
[2025-07-24] MEDS ORDERED: ALUMINUM/MAGNESIUM SUSP 30 ML UDC PO PRN (00:26)
[2025-07-24] MEDS: ONDANSETRON INJ 2 MG/ML 2 ML VIAL IV PRN (00:47)
[2025-07-24] MEDS: LACTATED RINGER'S 1,000 ML IV SCH (00:47)
--- NOTE | 2025-07-24 03:04 | Magnetic Resonance Report ---
Exam(s): MRI IACS IV Amt: 9.8 ml ruben EXAM: MR Head With Intravenous Contrast, Internal Auditory Canal Protocol CLINICAL HISTORY: Reason for exam: Vertigo, N/V, r/o CVA. OTHER: Other Notes: vertigo blurred vision, ringing in ears, nausea and vomiting TECHNIQUE: Magnetic resonance images of the head/brain with intravenous contrast in multiple planes using internal auditory canal protocol. CONTRAST: Patient received 9.8 ml ruben of IV contrast COMPARISON: Prior head CT from July 23, 2025. FINDINGS: Cranial nerves: Unremarkable. No mass. No abnormal enhancement. Cochlea and semicircular canals: Unremarkable. Cerebellopontine angles: Unremarkable. No mass. Brain: Mild nonspecific white matter changes. No mass. No hemorrhage. The flow voids at the base the brain are intact. 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 No evidence of abnormal enhancement. The dural venous sinuses are patent. Ventricles: Unremarkable as visualized. Bones/joints: Unremarkable. No acute fracture. Sinuses: Chronic maxillary and ethmoid sinusitis. No acute sinusitis. Mastoid air cells: Unremarkable as visualized. No mastoid effusion. Orbits: Unremarkable as visualized. IMPRESSION: No evidence of acute intracranial pathology. Negative MRI of the IACs. Electronically signed by: Paz Dawkins MD 07/24/25 03:03 AM
[2025-07-24 07:19] LABS: Anion Gap 7.0 (3-11); Blood Urea Nitrogen 12.0 mg/dl (6-23); Calcium 9.4 mg/dl (8.6-10.3); Carbon Dioxide 23.0 mmol/L (21-32); Chloride 109.0 mmol/L (98-107); Creatinine Clr Calc Pharmacy 107.7 ml/min; Glucose 107.0 mg/dl (70-99(Fasting)); Potassium 4.2 mmol/L (3.5-5.1); Sodium 139.0 mmol/L (136-145)
[2025-07-24 08:17] LABS: Cholesterol 136.0 mg/dl (0-200); HDL Cholesterol 40.0 mg/dl; Triglycerides 70.0 mg/dl (0-150)
[2025-07-24 08:34] LABS: Hemoglobin A1C 4.7 % (4.5-5.6)
[2025-07-24] MEDS: clonazePAM 1 MG TAB PO SCH (09:05)
[2025-07-24] MEDS: ASPIRIN 81 MG ECTAB PO SCH (09:05)
[2025-07-24] MEDS: CLOPIDOGREL BISULFATE 75 MG TAB PO SCH (09:05)
[2025-07-24] MEDS: MECLIZINE HCL 25 MG TAB PO SCH (12:04)
--- NOTE | 2025-07-24 15:06 | Communication Note ---
Date of Service: July 24, 2025 ATTESTATION I also saw the patient and confirmed lopez portions of the history and exam. I agree with the impression and plan in the resident documentation. 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 Initial symptoms subsided only to be followed a short time later with more significant vertigo associated with nausea and vomiting. , who is a bedside, also describes word finding difficulty - which has improved but still not quite at baseline per family and patient. He also descri bed some blurred vision which has resolved. The patient is seen midmorning in his room, he tells me that his symptoms are exacerbated by food in his head and either lateral direction. At rest, semi reclined, he feels pretty well. He did have one emesis this morning. No previous history of similar. No history of migraines. EXAM 121/74, 72, 20, 36.7, 96% room air no acute distress appreciated. Speech is clear and coherent ( patient and family at bedside note that he still struggling in terms of pace of speech and articulation, but this is much improved) I appreciate no nystagmus, vertical nor horizontal. Hallpike deferred Cardiovascular regular rate and rhythm Respirations nonlabored, lungs clear DATA Labs CBC and BMP are unremarkable. [place] level 0.4 Lyme screen negative BioFire panel is negative Imaging CT of the head, noncontrast, unremarkable CTA of the head and neck unremarkable chest x-ray without acute findings Negative MRI of the internal auditory canal. Evaluate areas of the brain unremarkable. IMPRESSION & PLAN Vertigo differential diagnosis includes BPV, stroke, complex migraine reported difficulties with speech and vision not completely consistent with BPV given diagnostic uncertainty, will ask neurology to evaluate add meclizine 25 mg p.o. every 8 hours for present time, will continue Plavix, aspirin, and statin Additional per resident documentation
--- NOTE | 2025-07-24 15:49 | Hospitalist Progress Note ---
Date of Service July 24, 2025 Assessment & Plan (1) Peripheral vertigo involving left ear: (2) Hypoxia: (3) Vertigo: (4) Dizziness: Plan Frederick Melvin is a 54 Y O Male with PMH of Anxiety, Wright's Palsy, Insomnia, Hypercholesterolemia, Bipolar disorder, GERD presented with vertigo, blurry vision , nausea, vomiting and concerns of speech . Stroke work up was done in the ER and was negative. Neurology was consulted today and findings more suggestive of BPPV/Vestibular Neuritis. Symptoms better with Meclizine PRN. He is being admitted for monitoring of his symptoms. #BPPV/ Vestibular neuritis -Stroke workup was done in the ER and was negative. -Neurology consulted. Appreciate recommendations -Meclizine PRN -May need Physical Therapy for Epleys Maneuver for recurrence of symptoms in the outpatient #Anxiety -Continue Clonazepam #Hyperlipidemia -Continue Atorvastatin #Bipolar Disorder -Continue home dose of lithium #Insomnia -Continue Zolpidem Dispo: med/surg with tele DVT prophylaxis: encourage ambulation Code: Full Admission and Anticipated Discharge Date Admission Date: July 23, 2025 Supervising Physician Co-Signing Physician Notes please see my attestation in the communication with the same date. 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 Initial symptoms subsided only to be followed a short time later with more significant vertigo associated with nausea and vomiting. , who is a bedside, also describes word finding difficulty - which has improved but still not quite at baseline per family and patient. He also described some blurred vision which has resolved. Review of Systems Review of Systems: as per HPI Physical Exam Physical Exam: General: No acute distress Skin: Warm and dry, diaphoretic (after vomiting) Head: Normocephalic, atraumatic Eyes: PERRL, conjunctivae clear, sclera non-icteric ENT: External ear and ear canal without swelling; nose atraumatic; fair dentition, tongue normal appearance, pharynx normal, appears dry Neck: Supple, no LAD Cardio: RRR, no M/G/R, S1 and S2 normal Resp: No respiratory distress, Lungs CTA in all lobes bilaterally, no wheezes, rales, or rhonchi Abdomen: Vomiting upon entering the room, clear yellow liquid; Abdomen soft, symmetric, nontender; No masses or hepatosplenomegaly; Bowel sounds normoactive MSK: No deformities; pulses palpable and equal; no edema. Psych: Appropriate mood and affect; good judgement and insight. Results & Data Results & Data Vital Signs (Past 12 Hours) Vital Signs Temp Pulse Pulse Resp BP BP Pulse Ox 07/24/25 07:19 36.5 C 60 16 123/75 98 07/24/25 02:41 36.5 C 59 L 18 133/85 96 07/24/25 00:26 07/24/25 00:00 53 L 18 123/79 99 07/23/25 23:04 57 L 19 123/86 98 07/23/25 21:00 60 18 145/92 H 100 07/23/25 20:05 58 L 17 118/70 98 07/23/25 19:50 59 L 19 113/69 98 Pulse Ox O2 Del Method O2 Del Method O2 Flow Rate 07/24/25 07:19 Room Air 07/24/25 02:41 Room Air 07/24/25 00:26 99 Room Air 07/24/25 00:00 Room Air 07/23/25 23:04 Nasal Cannula 2 07/23/25 21:00 Nasal Cannula 2 07/23/25 20:05 Nasal Cannula 2 07/23/25 19:50 Nasal Cannula 2 Resident Activity Tracking Resident Involvement: Resident Care Provided Care Provided: Adult Hospital Medicine
--- NOTE | 2025-07-24 16:59 | Neurology Consultation ---
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 The day prior to symptom onset he had been outdoors fishing in the cold for 7 to 8 hours, but otherwise denies any recent illness or infection. He has never had a similar episode in the past. More likely than not, his vertigo was peripheral, possibly vestibular neuritis or benign positional paroxysmal vertigo. I am not able to induce any vertigo or nystagmus on his examination at this time. He has an intact neurological examination and had an unremarkable neuroimaging assessment. I do not think his clinical presentation was highly suggestive of vertebrobasilar insufficiency or acute stroke syndrome. I do not think he requires dual antiplatelet therapy or even daily low-dose aspirin therapy at this time. Would recommend meclizine as needed. If his symptoms recur, would consider referring him to physical therapy for Ruchi maneuvers and possibly habituation exercises. I doubt he has Mnire's disease. However, could consider outpatient audiometry. He does not have obvious heari ng loss on examination, however. Should not require additional neurological assessments. Please call with any questions. 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 His vertigo was a fairly abrupt onset yesterday afternoon, he had associated difficulty with balance, had nausea, emesis, his symptoms were worse with movement and turning his head to either side. He complains of mild tinnitus affecting the left ear, no hearing loss. No associated diplopia, dysarthria or hemiparesis. He indicates that he had been feeling well prior to symptom onset although had spent about 7 to 8 hours outdoors fishing in the cold the previous day. He reports that his symptoms are considerably improved, if not nearly resolved at this time. He indicates that he has never had an episode of vertigo like this in the past. 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 CTA of the head and neck unremarkable. MRI of the brain with attention to the internal auditory canals normal as well, no evidence of acute or subacute infarct, no significant pathologic process identified. I independently reviewed these images. Allergies Allergy/AdvReac Type Severity Reaction Status Date / Time No Known Allergies Allergy Unknown Verified 07/23/25 19:55 Home Medications Medication Instructions Recorded Confirmed Type zolpidem 10 mg tablet 10 mg PO HS PRN Sleep 05/07/19 07/23/25 History fexofenadine 60 mg tablet (Ghazal 60 mg PO QAM PRN Congestion 11/10/19 07/23/25 History Allergy) lithium carbonate 300 mg tablet 600 mg PO HS 11/10/19 07/23/25 History clonazepam 1 mg tablet 1 mg PO BID 11/28/20 07/23/25 History lithium carbonate 150 mg capsule 150 mg PO HS 06/28/21 07/23/25 History atorvastatin 10 mg tablet 10 mg PO HS 07/23/25 07/23/25 History finasteride 1 mg tablet 1 mg PO HS 07/23/25 07/23/25 History omeprazole 40 mg capsule,delayed 40 mg PO HS 07/23/25 07/23/25 History release Patient History Medical History Bipolar disorder (manic depression) Gynecomastia History of broken finger History of colon polyps History of COVID-19 diagnosed 10/13/20 @ [facility] in [place]--sinus symptoms for 2 wks, headache for a few weeks COVID-19 Anxiety Hyperglycemia Surgical History H/O tooth extraction History of colonoscopy with polypectomy History of tonsillectomy History of wisdom tooth extraction Family History Mother Pancreatic cancer Diabetes Anxiety Depression Colorectal cancer Hemochromatosis Father , age 53 Alcohol abuse Brother No problems noted. Brother No problems noted. Sister No problems noted. Brother No problems noted. Sister No problems noted. Daughter No problems noted. Daughter No problems noted. Daughter No problems noted. 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 Beliefs That Will Affect Care: None marital status: Current Living Situation: Spouse Current Living Situation Comment: Lives with and kid current occupational status: employed 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 How many Children do You have: 3 Feels Safe at Home: Yes Safety Concerns: Feels Safe At This Time Childhood Exposure to Second-Hand Smoke: No Diet: regular caffeine: Yes during the past year weight has: remained stable Dental Care, Regularly: Yes Physical Activity Frequency: 3-4 Times per Week Seatbelt Use: always Sunscreen Use: Yes Assistive Devices: None Review of Systems Constitutional: no fever Eyes: no blind spots, no diplopia and no eye pain Ear, Nose, Mouth, Throat: + tinnitus; no ear pain and no hearing l oss Respiratory: no dyspnea Cardiovascular: no palpitations Gastrointestinal: + nausea and + vomiting Genitourinary: no dysuria Musculoskeletal: no myalgia Integumentary: no rash Neurologic: as per Subjective / HPI Psychiatric: no depression and no anxiety Hematologic / Lymphatic: no easy bleeding and no easy bruising Exam (Neuro) Constitutional: well developed and well nourished; no acute distress Eyes: normal visual negrete by confrontation, PERRL and EOM intact bilaterally; no nystagmus Neurologic: Oriented to:: Person, Place and Time Memory: Short Term Intact and Remote Intact Attention: Span Intact and Concentration Intact Speech Fluency: negative Dysarthria or Dysfluency Speech Aphasia: negative Aphasia Fund of Knowledge: Current Events, Past History and Vocabulary Cranial Nerves: Normal II, III, IV, , V, VII, VIII, IX, X, XI and XII Motor Strength: negative Normal Lower Extremities or Normal Upper Extremities Motor Tone: Normal Lower Extremities and Normal Upper Extremities Muscle Bulk/Involuntary Movements: No Involuntary Movements; negative Muscle Atrophy Sensation: Light Touch Intact, Pain/Temperature Intact and Proprioception Intact Coordination: Normal; negative Limited Balance, Dysdiadochokinesia, Finger- Nose Abnormal or Heel-Evans Abnormal Deep Tendon Reflexes: Rt Triceps: 2+, Lt Triceps: 2+, Rt Biceps: 2+, Lt Biceps: 2+, Rt Brachioradialis: 2+, Lt Brachioradialis: 2+, Rt Patellar: 2+, Lt Patellar: 2+, Rt Ankle: 2+ and Lt Ankle: 2+ Gait: Normal Station and Gait Details: [place]-Hallpike negative Results & Data Vital Signs (Past 12 Hours) Vital Signs Temp Pulse Pulse Resp BP BP Pulse Ox 07/24/25 15:27 36.6 C 57 L 18 116/75 98 07/24/25 14:20 72 07/24/25 11:46 36.7 C 60 20 121/74 96 07/24/25 07:39 60 07/24/25 07:39 07/24/25 07:19 36.5 C 60 16 123/75 98 O2 Del Method 07/24/25 15:27 Room Air 07/24/25 14:20 07/24/25 11:46 Room Air 07/24/25 07:39 07/24/25 07:39 Room Air 07/24/25 07:19 Room Air Laboratory Results WBC 9.24, hemoglobin 14.7, hematocrit 43.0, platelet count 245, sodium 139, potassium 4.2, creatinine 0.90, glucose 107, hemoglobin A1c 4.7, calcium 9.4, magnesium 2.2, triglycerides 70, cholesterol 136, LDL 82, HDL 40, urine toxicology screen negative, Lyme screen negative Diagnostic Findings Electrocardiogram, sinus bradycardia, 59 bpm Coding Level of Care Code 52222 INT INP/OBS CARE 3/75MIN Diagnoses Peripheral vertigo involving left ear H81.392 Time Spent (min) 80 Comment Total time includes patient contact, chart review, counseling, note preparation
[2025-07-24] MEDS: ACETAMINOPHEN 325 MG TAB PO PRN (23:27)
[2025-07-24] MEDS: LITHIUM CARBONATE 300 MG TAB PO SCH (23:29)
[2025-07-24] MEDS: ATORVASTATIN 10 MG TAB PO SCH (23:32)
[2025-07-25 02:52] VITALS: TEMP 98.1
--- NOTE | 2025-07-25 06:54 | Hospitalist Progress Note ---
Date of Service July 25, 2025 Assessment & Plan (1) Peripheral vertigo involving left ear: (2) Hypoxia: (3) Vertigo: (4) Dizziness: (5) Benign paroxysmal positional vertigo: Plan Frederick Melvin is a 54 Y O Male with PMH of Anxiety, Wirght's Palsy, Insomnia, Hypercholesterolemia, Bipolar disorder, GERD presented with vertigo, blurry vision , nausea, vomiting and concerns of speech . Stroke work up was done in the ER and was negative. Neurology was consulted today and findings more suggestive of BPPV/Vestibular Neuritis. Symptoms better with Meclizine PRN. He is being admitted for monitoring of his symptoms. #BPPV/ Vestibular neuritis -Stroke workup was done in the ER and was negative. -Neurology consulted. Appreciate recommendations -Meclizine PRN -May need Physical Therapy for Epleys Maneuver for recurrence of symptoms in the outpatient #Anxiety -Continue Clonazepam #Hyperlipidemia -Continue Atorvastatin #Bipolar Disorder -Continue home dose of lithium #Insomnia -Continue Zolpidem Dispo: med/surg with tele DVT prophylaxis: encourage ambulation Code: Full Admission and Anticipated Discharge Date Admission Date: July 23, 2025 Review of Systems Review of Systems: as per HPI Results & Data Results & Data Vital Signs (Past 12 Hours) Vital Signs Temp Pulse Resp BP BP Pulse Ox Pulse Ox 07/25/25 02:51 36.7 C 64 16 96/60 L 93 07/25/25 00:26 92 07/24/25 22:42 36.8 C 64 18 120/72 96 07/24/25 19:44 36.6 C 61 18 117/74 93 O2 Del Method O2 Del Method 07/25/25 02:51 Room Air 07/25/25 00:26 Room Air 07/24/25 22:42 Room Air 07/24/25 19:44 Room Air
[2025-07-25 07:22] VITALS: RESP 20; O2SAT 97
--- NOTE | 2025-07-25 07:53 | Discharge Summary ---
Date of Service July 25, 2025 Admission HPI Per Admitting Provider 57-year-old male PMHx anxiety, Wright's palsy, insomnia, hypercholesterolemia, and GERD presenting for dizziness, blurred vision, and N/V starting at 1600 the day of arrival. Pt reports that he had a sudden onset of vertigo, feeling as though the room was spinning around him. He felt that his vision became blurry at that time as well. The vertigo resolved some, then at 1800 while the patient was at his office, he reports sudden worsening of the vertigo with associated N/V. He continued to have blurred vision bilaterally, feeling that things were not clear and it was similar to his "contacts being dirty and almost foggy." He felt off balance with walking because of the vertiginous symptoms, and was concerned that he was going to "go down". He was able to get himself to his car after calling his , and he had an episode of emesis here. He reports that the vertigo continues to come and go in waves, causing him to vomit with the worse part of it. He describes his current feeling as being almost "hangover-like." He does not have abdominal pain or additional GI symptoms. He does suffer from anxiety, feels that this is worsening it. Admits to some tinnitus but not sure when it started, and not worse on one side compared to the other. Feels that his voice is off, stating that he knows what he wants to say but mechanically he feels that he is struggling to say the words. He denies additional neuro deficits. No facial droop. 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 He denies CP, palpitations, SOB, abdominal pain, D/C, F/C, URI symptoms, LUTS, weakness, numbness/tingling, or falls. Never had this happen before, no prior h/o CVA/TIA. ED evaluation reveals CBC grossly WNL; WNL PT/INR; CMP Cl 109, glucose 129; Ca 9.2; Mg 2.2; Trop 3.9; Head CT without acute findings; head CTA no definite stenosis or aneurysm; neck CTA no definite stenosis; EKG sinus bradycardia @ 59 bpm.; Provided with ASA 81mg po, Plavix 300 mg po, meclizine 25mg po, and ondansetron 4mg IV in ED. Please see Dr. Gutierrez's attestation for adjustments/additions to treatment plan. Admission Exam Per Admitting Provider General: No acute distress Skin: Warm and dry, diaphoretic (after vomiting) Head: Normocephalic, atraumatic Eyes: PERRL, conjunctivae clear, sclera non-icteric ENT: External ear and ear canal without swelling; nose atraumatic; fair dentition, tongue normal appearance, pharynx normal, appears dry Neck: Supple, no LAD Cardio: RRR, no M/G/R, S1 and S2 normal Resp: No respiratory distress, Lungs CTA in all lobes bilaterally, no wheezes, rales, or rhonchi Abdomen: Vomiting upon entering the room, clear yellow liquid; Abdomen soft, symmetric, nontender; No masses or hepatosplenomegaly; Bowel sounds normoactive MSK: No deformities; pulses palpable and equal; no edema. Neuro: II- PERRL, no VF deficits III, IV, - EOMs intact, no deviation, vertical nystagmus with L gaze V- Normal sensation in all locations VII- No asymmetry, no nasolabial fold flattening VIII- Normal hearing to speech and finger rub bilaterally IX, X- Normal palatal elevation, no ulnar deviation XI- 5/5 head turn + shoulder shrug bilaterally XII- Midline tongue protrusion Motor: 5/5 strength throughout BUE/BLE; no pronator drift Reflexes: WNL throughout, no clonus Sensory: Normal sensation throughout, no hemineglect, Romberg absent Coordination: Normal [id number], no tremor, no dysmetria Gait: Unable to assess; feels unsteady Psych: Appropriate mood and affect; good judgement and insight. Principal Diagnosis BPPV Discharge Exam General: No acute distress Skin: Warm and dry, diaphoretic (after vomiting) Head: Normocephalic, atraumatic Eyes: PERRL, conjunctivae clear, sclera non-icteric ENT: External ear and ear canal without swelling; nose atraumatic; fair dentition, tongue normal appearance, pharynx normal, appears dry Neck: Supple, no LAD Cardio: RRR, no M/G/R, S1 and S2 normal Resp: No respiratory distress, Lungs CTA in all lobes bilaterally, no wheezes, rales, or rhonchi Abdomen: Vomiting upon entering the room, clear yellow liquid; Abdomen soft, symmetric, nontender; No masses or hepatosplenomegaly; Bowel sounds normoactive MSK: No deformities; pulses palpable and equal; no edema. Psych: Appropriate mood and affect; good judgement and insight. Discharge Data Allergies Allergy/AdvReac Type Severity Reaction Status Date / Time No Known Allergies Allergy Unknown Verified 07/23/25 19:55 Consultations 07/23/25 22:24 ED Decision to Admit Stat 07/24/25 11:43 Consult Neurology Routine Ordered Studies 07/23/25 18:50 CT angio head w con Stat CT angio neck with con Stat CT head/brain wo con Stat 07/23/25 22:20 MR brain IAC wo/w con Stat Hospital Course (1) Peripheral vertigo involving left ear: (2) Hypoxia: (3) Vertigo: (4) Dizziness: (5) Benign paroxysmal positional vertigo: Frederick Powell is a 54 Y O Male with PMH of Anxiety, Wright's Palsy, Insomnia, Hypercholesterolemia, Bipolar disorder, GERD presented with vertigo, blurry vision , nausea, vomiting and concerns of speech . Stroke work up was done in the ER and was negative. Neurology was consulted today and findings more suggestive of BPPV/Vestibular Neuritis. Symptoms better with Meclizine PRN. He is being admitted for monitoring of his symptoms. #BPPV/ Vestibular neuritis -Stroke workup was done in the ER and was negative. -Neurology consulted. F/U with neurology in the outpatient -Mild non specific white matter changes in MRI. May need to start on low dose aspirin. Discuss with PCP in the outpatient. -Meclizine 25mg TID PRN for 7 days -May need Physical Therapy for Epleys Maneuver for recurrence of symptoms in the outpatient #Anxiety -Continue Clonazepam #Hyperlipidemia -Continue Atorvastatin #Bipolar Disorder -Continue home dose of lithium #Insomnia -Continue Zolpidem Total Time Total Time Spent Total Time Spent (In Minutes): Charly Verdugo DO, attending physician, spent 25 minutes myself seeing the patient, reviewing the chart, and documenting today. Discharge Plan Discharge Items Patient Disposition: Home - Self-Care Reason For Visit: VERTIGO, N/V, R/O CVA Discharge Diagnosis: 1. Benign Paroxysmal Positional Vertigo Condition on Discharge: Fair Activity: Per Instructions section Non-emergency contact: Primary Care Provider Call non-emergency contact if: you have any medication questions and your symptoms worsen Follow-up/Referrals: Armaan Hill III, CRNP [Primary Care Provider] - 07/31/25 9:20 am Diet: Regular Addtl Attending Provider Instructions: You were admitted to the [facility] for the symptoms of nausea, vomiting, vertigo, blurry vision and some speech concern. Our initial suspicion was stroke. So we did complete workup for stroke and it was negative. Neurology team was consulted for further opinion and we suspect that you had a condition called Benign Paroxysmal Positional Vertigo. Benign Paroxysmal Positional Vertigo BPPV is caused by inner ear problems. Deep inside the ear, there is a small network of tubes filled with fluid. Special calcium deposits float inside that fluid. Together, these tubes and deposits make up the "vestibular system". This system tells the brain what position the body is in. It also helps keep you balanced.With BPPV, extra calcium deposits form in the inner ear. This can lead to short episodes of vertigo when you move your head in certain ways Certain exercises or "maneuvers" can help move the extra calcium to a part of the inner ear where it will be reabsorbed. There is a maneuver called 'Modified Ruchi Maneuver" which is often needed for recurrence of vertigo. We have sent a new medication called Meclizine to your pharmacy which helps with your vertigo. Please take Meclizine as needed for total of 3 times per day. While you are on Meclizine , donot take Fexofenadine as it can worsen drowsiness . Other than that, continue all your home medications. Please followup with your PCP within a week from discharge. Your PCP may refer you to the Physical Therapy for maneuver as described above for recurrence of vertigo. In addition, as we discussed because of some early changes in your MRI, please discuss about starting low dose aspirin with your PCP. Pending Studies at Discharge: No Stand-Alone Forms: My [facility], Smoking Cessation Medications and DC Order Prescriptions: New meclizine 25 mg Tablet 25 mg PO TID 7 Days Qty: 21 0RF Continued lithium carbonate 300 mg tablet 600 mg PO HS Rx Instructions: TOTAL DOSE 750 MG--TAKES WITH 150 MG CAP. zolpidem 10 mg tablet 10 mg PO HS PRN (Reason: Sleep) clonazepam 1 mg Tablet 1 mg PO BID lithium carbonate 150 mg capsule 150 mg PO HS Rx Instructions: TOTAL DOSE 750 MG--TAKES WITH 2-300 MG TABS. atorvastatin 10 mg tablet 10 mg PO HS omeprazole 40 mg capsule,delayed release(DR/EC) 40 mg PO HS finasteride 1 mg tablet 1 mg PO HS Held fexofenadine [Ghazal Allergy] 60 mg tablet 60 mg PO QAM PRN (Reason: Congestion) Hold Instructions: Resume on 08/01/25. Hold until you are taking Meclizine. Discharge Orders: Discharge Order (Routine); Ordered 07/25/25 Ordered By: Eun Mcgovern Admission Data Admit Date/Time: 07/23/25 22:11 Attending Provider: Charly Devlin Admit Provider: Robin Gutierrez Primary Care Provider: Armaan Hill III Other Providers: Robin Gutierrez; Waldo Andino Other Interventions: Discharge Summary Assessment (RN) Last Done: 07/25/25 10:31 Supervising Physician Co-Signing Physician Notes ATTESTATION I also saw the patient and confirmed lopez portions of the history and exam. I agree with the impression and plan in the resident documentation. Feeling better today. Minimal symptoms. PT performed [facility] [place] and could not replicate symptoms or nystagmus Neurology consult appreciated. IMPRESSION & PLAN Vertigo, improved Continue home medications Defer on ASA at this time Meclizine PRN Return to work Tuesday; gradually increase activity between now and then PCP follow up Additional per resident documentation Resident Activity Tracking Resident Involvement: Resident Care Provided Care Provided: Adult Hospital Medicine
--- NOTE | 2025-07-25 09:12 | Neurology Progress Note ---
Date of Service July 25, 2025 Assessment & Plan (1) Peripheral vertigo involving left ear: (2) Bipolar disorder (manic depression): (3) Chronic cerebral ischemia: Plan Patient had the acute onset of vertigo, left greater than right tinnitus, with some nausea and vomiting afternoon of July 23. Although he is improved compared to admission, he still has vertiginous symptoms when he is up walking. MRI of the brain was normal, although he has some minimal old small vessel ischemic disease which is nonspecific. He has no focal findings or nystagmus on examination. The etiology of his symptoms is likely a left inner ear problem (peripheral as opposed to central). This is likely a vestibular neuronitis. He was out in the wind and cold for hours before this initiated. The patient does not have hearing loss and this is probably not Mnire's disease. Patient has a history of bipolar disorder and anxiety stable on lithium and clonazepam. [place] level was normal at 0.4 Recommendations: 1. Meclizine 25 mg 3 times a day as needed 2. If meclizine does not help his vertigo low doses of benzodiazepines, such as diazepam 2mg, can help. 3. Consider vestibular therapy/physical therapy as an outpatient 4. Suggest audiometry referral 5. 81 mg aspirin tablet daily could be considered given his small vessel ischemic disease, but this could be decided as an outpatient 6. Contact neurology if new issues arise, otherwise follow-up with neurology as outpatient in 2 to 3 weeks with neurology PA or Dr. Andino. Overall, I spent a total of 50 minutes with this case including review of records, review of MRI films, direct evaluation of the patient, report generation, and discussion of the case with the patient at bedside and Dr. Eun Mcgovern, including differential diagnosis and treatment options Admission and Anticipated Discharge Date Admission Date: July 23, 2025 Subjective Patient had the onset of acute vertiginous symptoms until late afternoon July 23. After admission he has been doing better but he still has some vertiginous symptoms when he is up walking after a while. He has had no further nausea or vomiting. He continues to have left greater than right ringing in the ears. He has no hearing loss or ear pain bilaterally. He does not feel pulled in any particular direction when he gets the dizziness and is not a true spinning sensation but a wooziness. He does not feel lightheaded like he is going to faint. There is some pressure sensation in the left upper head as well. This is impr justin from yesterday but still present. MRI of the brain including IACs with contrast was unremarkable/normal. There was minimal (to mild) old small vessel ischemic disease of a nonspecific nature. I reviewed these films. Laboratory studies were unremarkable with hemoglobin A1c of 4.7, lithium level of 0.4, Lyme antibody testing negative, total cholesterol 136 and triglycerides 70. Blood pressure is 121/76 with a pulse of 58 and he is afebrile. Results & Data Vital Signs (Past 12 Hours) Vital Signs Temp Pulse Pulse Resp BP BP Pulse Ox 07/25/25 07:45 58 L 07/25/25 07:45 07/25/25 07:21 36.7 C 57 L 20 121/76 97 07/25/25 02:51 36.7 C 64 16 96/60 L 93 07/25/25 00:26 07/24/25 22:42 36.8 C 64 18 120/72 96 Pulse Ox O2 Del Method O2 Del Method 07/25/25 07:45 07/25/25 07:45 Room Air 07/25/25 07:21 Room Air 07/25/25 02:51 Room Air 07/25/25 00:26 92 Room Air 07/24/25 22:42 Room Air Exam (Neuro) Physical Exam: He is awake and alert. Speech is without aphasia or dysarthria. Mood and affect seem normal and appropriate. Thought processes are intact with good long and short-term memory to conversation Extraocular muscles are intact without nystagmus. There is no facial droop. Tongue is midline. Stance sitting and standing is unremarkable/normal Coordination is normal in the arms without tremor or ataxia. Motor strength is symmetrical in all major muscle groups arms and legs both proximally and distally. PG Care Time/CCT Total # of Minutes Spent Total Time Spent with Patient: Total time spent is greater than 50% in coordination of care (as documented) at patient's floor/unit and/or counseling patient: Coding Level of Care Code 31958 SUB INP/OBS CARE 3/50MIN Diagnoses Peripheral vertigo involving left ear H81.392 Bipolar disorder, current episode mixed, mild F31.61 Active/Remission status: currently active Current bipolar episode type: mixed Current episode severity: mild Chronic cerebral ischemia I67.82 Time Spent (min) 50 (2) Bipolar disorder (manic depression) Active/Remission status: currently active Current bipolar episode type: mixed Current episode severity: mild Qualified Code(s): F31.61 - Bipolar disorder, current episode mixed, mild
[2025-07-25 10:32] VITALS: BP 96/60; PULSE 57
--- NOTE | 2025-07-25 14:45 | XCELERA ---
[id number]
--- NOTE | 2025-07-26 08:30 | Electrocardiogram Report ---
Test Reason : Blood Pressure : */* mmHG Vent. Rate : 59 BPM Atrial Rate : 59 BPM P-R Int : 202 ms QRS Dur : 96 ms QT Int : 420 ms P-R-T Axes : 10 -20 19 degrees QTcB Int : 415 ms Sinus bradycardia Minimal voltage criteria for LVH, may be normal variant ( R in aVL ) Borderline ECG When compared with ECG of 28-Jun-2021 12:55, No significant change was found Confirmed by Raphael Herdick ([id number]) on 07/26/2025 8:30:44 AM Referred By: REFERRED SELF Confirmed By: Raphael Hedrick
== END 2025-07-25 11:00 | disposition home or self-care (01) ==
LOC: ED 18:29 → 2S 18:29 → SUATTDRO 22:11 → 2S 23:04